=== PATIENT | male | born 1965 | race Caucasian/White ===

== ENCOUNTER 2023-01-04 09:27 | Emergency (ER) | payer OTHER, SELFPAY ==
[2023-01-04 09:30] VITALS: BP 157/91; PULSE 68; RESP 18; TEMP 36.7; O2SAT 98; BMI 32.9
--- NOTE | 2023-01-04 09:40 | XR_ITS ---
The [address] [address] Patient Name: YOSELYN WHITNEY MRN: [id number] date: 1965 Sex: M Assigned Patient Location: ER Current Patient Location: ER Accession/Order Number: [id number] Exam Date: 01/04/2023 09:50 Report Date: 01/04/2023 10:05 At the request of: SCARLET THEODORE Procedure: XR chest 1V EXAM: XR chest 1V HISTORY: . sob . COMPARISON: 03/23/2019 TECHNIQUE: Single view of the chest FINDINGS: Heart and vascularity are unremarkable. Lungs are free of focal infiltrates. Early spondylosis of the spine is noted. XR/XR chest 1V IMPRESSION: No acute heart or lung disease identified. Electronically authenticated by: LIU BAHENA Date: 01/04/2023 10:05
--- NOTE | 2023-01-04 09:40 | ECG_ITS ---
The [facility] Test Date: 2023-01-04 Pat Name: YOSELYN WHITNEY Department: Room: - Gender: Male Rand Sewer: : 1965 Requested By: [id number] Order Number: [id number] Reading MD: CHRISTAL BURGOS Measurements Intervals [place] Rate: 60 P: -2 AR: 162 QRS: -1 QRSD: 82 T: 12 QT: 384 QTc: 386 Interpretive Statements 1100 Sinus rhythm 9110 normal ECG No previous ECG available for comparison Electronically Signed On 01-05-2023 7:21:15 EDT by CHRISTAL BURGOS
[2023-01-04 10:00] LABS: Basophils Percent Auto 0.3 % (0.2-2.0); Eosinophils Absolute Auto 0.2 10^3/uL (0.0-0.7); Eosinophils Percent Auto 2.5 % (0.9-7.0); Hematocrit 48.2 % (42.0-54.0); Hemoglobin 16.6 g/dL (14.0-18.0); Immature Granulocytes Abs Auto 0.05 10^3/uL (0.00-0.03); Immature Granulocytes Pct Auto 0.5 % (0.0-0.5); Lymphocytes Absolute Auto 2.6 10^3/uL (1.2-3.8); Lymphocytes Percent Auto 26.8 % (20.5-60.0); Mean Corpuscular HGB Conc 34.4 g/dL (29.9-35.2); Mean Corpuscular Volume 90.1 fL (80.0-94.0); Mean Platelet Volume 8.9 fL (9.5-13.5); Monocytes Absolute Auto 0.7 10^3/uL (0.3-0.8); Monocytes Percent Auto 7.7 % (1.7-12.0); Neutrophils Percent Auto 62.2 % (43.0-75.0); Platelet Count 312 10^3/uL (150-450); Red Blood Count 5.35 10^6/uL (4.70-6.10); Red Cell Distribution Width 13.3 % (11.0-15.0); White Blood Count 9.6 10^3/uL (4.0-11.0)
[2023-01-04] MEDS: METHYLPREDNISOLONE SOD SUCC PF 125 MG/2 ML VIAL IVP (10:00)
[2023-01-04] MEDS: IPRATROPIUM/ALBUTEROL SULFATE 3 ML AMPUL.NEB IH (10:04)
[2023-01-04 10:05] VITALS: PULSE 58; RESP 16; O2SAT 99
[2023-01-04 10:11] LABS: Alanine Aminotransferase 29 U/L (16-63); Albumin Globulin Ratio 1.2; Albumin Level 4.1 g/dL (3.4-5.0); Alkaline Phosphatase 47 U/L (46-116); Anion Gap 14.8; Aspartate Amino Transferase 19 U/L (15-37); BUN Creatinine Ratio 18.9; Bilirubin Total 0.6 mg/dL (0.2-1.0); Calcium 9.2 mg/dL (8.5-10.1); Carbon Dioxide 24.1 mmol/L (21.0-32.0); Chloride 103 mmol/L (98-107); Estimated GFR (African America >60 (>=60); Estimated GFR (Non-African Ame >60 (>=60); Globulin 3.5 g/dL; Glucose 109 mg/dL (74-106); Potassium 3.9 mmol/L (3.5-5.1); Sodium 138 mmol/L (136-145); Total Protein 7.6 g/dL (6.4-8.2); Troponin I High Sensitivity 18.9 pg/mL (4.0-76.1)
[2023-01-04 10:28] LABS: INR 0.95; Prothrombin Time 10.1 sec (9.0-11.6)
--- NOTE | 2023-01-04 10:54 | ED.SOB1 ---
HPI - SOB/Dyspnea General Chief Complaint: Shortness of Breath/Dyspnea Stated Complaint: SHORTNESS OF BREATH/CHEST PAIN Time Seen by Provider: 01/04/23 09:39 Source: patient Mode of arrival: walk-in History of Present Illness HPI Narrative: The patient presented to us with shortness of breath as well as coughing and congestion with chest pain that comes whenever he take a deep breath in the middle of the chest, that has been going on at least for a week he mentioned that he already been evaluated by his primary care doctor and he was started on antibiotic and Z-Moises The patient have a history of smoking less than 1 pack/day of cigarettes He have no fever or chills and he mentioned that 7 days ago it all started with congestion and runny nose Related Data Home Medications Medication Instructions Recorded Confirmed azithromycin 250 mg tablet 250 mg PO DAILY 01/04/23 01/04/23 benzonatate 200 mg capsule 200 mg PO TID 01/04/23 01/04/23 esomeprazole magnesium 40 mg 40 mg PO Q24H 01/04/23 01/04/23 capsule,delayed release gabapentin 300 mg capsule 300 mg PO Q12H 01/04/23 01/04/23 Previous Rx's Medication Instructions Recorded albuterol sulfate 90 mcg/actuation 2 inh inhalation Q6H PRN shortness 01/04/23 aerosol inhaler of breath or wheezing #6.7 grams guaifenesin 600 mg tablet, 600 mg PO BID PRN cough #10 tabs 01/04/23 extended release 12 hr (Mucinex) prednisone 50 mg tablet 50 mg PO DAILY 5 days #5 tabs 01/04/23 Allergies Allergy/AdvReac Type Severity Reaction Status Date / Time No Known Drug Allergies Allergy Verified 01/04/23 09:34 Review of Systems ROS Status of ROS 10 or more systems reviewed and unremarkable except as noted in history and below Exam Narrative Exam Narrative: Nurses notes and vital signs reviewed and patient is not hypoxic. General: Well-appearing and in no apparent distress. Skin: Warm, dry, no pallor noted. No rash. Head: Normocephalic, atraumatic. Neck: Supple, non-tender. Eye: Pupils are equal, round and EOMI. No scleral icterus. Ears, Nose, Mouth, and Throat: TM are clear, no nasal mucosal hypertrophy. Oral mucosa is moist, no posterior oropharynx erythema, uvula is mid-line Cardiovascular: Regular Rate and Rhythm without murmur, gallop or rub. Respiratory: No accessory muscle use or respiratory distress. Lungs decreased air entry at the bases and distant breathing sounds no wheezing Chest Wall: no tenderness Back: No midline thoracic or lumbar vertebral tenderness. No CVA tenderness Musculoskeletal: normal ROM, no calf or popliteal tenderness, no lower extremity edema/swelling GI: Abdomen is soft, non-distended. Normal bowel sounds. No masses appreciated. No tenderness to palpation. No rebound, guarding, or rigidity noted. Neurological: A&O x4. No cranial nerve dysfunction observed. No truncal ataxia. Moves all extremities. Sensation intact. Psychiatric: Cooperative and interactive. Normal mood and affect. Constitutional Vital Signs, click to edit/add: Last Vital Signs Temp 98.0 F 01/04/23 09:30 Pulse 58 L 01/04/23 10:05 Resp 16 01/04/23 10:05 BP 157/91 H 01/04/23 09:30 Pulse Ox 99 01/04/23 10:05 O2 Del Method Room Air 01/04/23 10:05 Course Vital Signs Vital signs: Vital Signs Temperature 98.0 F 01/04/23 09:30 Pulse Rate 68 01/04/23 09:30 Respiratory Rate 18 01/04/23 09:30 Blood Pressure 157/91 H 01/04/23 09:30 Pulse Oximetry 98 01/04/23 09:30 Oxygen Delivery Method Room Air 01/04/23 09:30 Temperature 98.0 F 01/04/23 09:30 Pulse Rate 58 L 01/04/23 10:05 Respiratory Rate 16 01/04/23 10:05 Blood Pressure 157/91 H 01/04/23 09:30 Pulse Oximetry 99 01/04/23 10:05 Oxygen Delivery Method Room Air 01/04/23 10:05 MDM - SOB/Dyspnea MDM Narrative Medical decision making narrative: The patient EKG in the ER showing sinus rhythm with a heart rate of [address] elevation or depression The patient CBC chemistry as well as troponin and chest x-ray showed no acute pathology he is presenting with a typical bronchitis mostly secondary to viral infection he was treated with a Solu-Medrol and breathing treatment in the ER after which she was feeling better The patient is feeling much better after initial treatment he will be discharged home with prednisone as well as Mucinex and albuterol The patient is to follow up with primary care physician in next 2-3 days or to return to the emergency department should any of the signs or symptoms worsen or new symptoms develop. The patient agrees with the following Diagnosis and Treatment plan and the patient will be discharged home. Lab Data Labs: Lab Results 01/04/23 Range/Units 09:44 WBC 9.6 (4.0-11.0) 10^3/uL RBC 5.35 (4.70-6.10) 10^6/uL Hgb 16.6 (14.0-18.0) g/dL Hct 48.2 (42.0-54.0) % MCV 90.1 (80.0-94.0) fL MCH 31.0 (25.9-34.0) pg MCHC 34.4 (29.9-35.2) g/dL RDW 13.3 (11.0-15.0) % Plt Count 312 (150-450) 10^3/uL MPV 8.9 L (9.5-13.5) fL Neut % (Auto) 62.2 (43.0-75.0) % Lymph % (Auto) 26.8 (20.5-60.0) % [place] % (Auto) 7.7 (1.7-12.0) % Eos % (Auto) 2.5 (0.9-7.0) % Baso % (Auto) 0.3 (0.2-2.0) % Neut # (Auto) 6.0 (1.4-6.5) 10^3/uL Lymph # (Auto) 2.6 (1.2-3.8) 10^3/uL [place] # (Auto) 0.7 (0.3-0.8) 10^3/uL Eos # (Auto) 0.2 (0.0-0.7) 10^3/uL Baso # (Auto) 0.0 (0.0-0.1) 10^3/uL Abs Immat Gran (auto) 0.05 H (0.00-0.03) 10^3/uL Imm/Tot Granulo (auto) 0.5 (0.0-0.5) % PT 10.1 (9.0-11.6) sec INR 0.95 Sodium 138 (136-145) mmol/L Potassium 3.9 (3.5-5.1) mmol/L Chloride 103 (98-107) mmol/L Carbon Dioxide 24.1 (21.0-32.0) mmol/L Anion Gap 14.8 BUN 18.0 (7.0-18.0) mg/dL Creatinine 0.95 (0.70-1.30) mg/dL Est GFR ( Amer) >60 (>=60) Est GFR (Non-Af Amer) >60 (>=60) BUN/Creatinine Ratio 18.9 Glucose 109 H (74-106) mg/dL Calcium 9.2 (8.5-10.1) mg/dL Total Bilirubin 0.6 (0.2-1.0) mg/dL AST 19 (15-37) U/L ALT 29 (16-63) U/L Alkaline Phosphatase 47 (46-116) U/L Troponin I High Sens 18.9 (4.0-76.1) pg/mL Total Protein 7.6 (6.4-8.2) g/dL Albumin 4.1 (3.4-5.0) g/dL Globulin 3.5 g/dL Albumin/Globulin Ratio 1.2 Discharge Plan Discharge Chief Complaint: Shortness of Breath/Dyspnea Clinical Impression: Bronchitis Patient Disposition: Home, Self-Care Time of Disposition Decision: 10:52 Condition: Good Prescriptions / Home Meds: New prednisone 50 mg tablet 50 mg PO DAILY 5 Days Qty: 5 0RF guaifenesin [Mucinex] 600 mg tablet extended release 12hr 600 mg PO BID PRN (Reason: cough) Qty: 10 0RF albuterol sulfate 90 mcg/actuation HFA aerosol inhaler 2 inh inhalation Q6H PRN (Reason: shortness of breath or wheezing) Qty: 6.7 0RF No Action azithromycin 250 mg tablet 250 mg PO DAILY benzonatate 200 mg capsule 200 mg PO TID esomeprazole magnesium 40 mg capsule,delayed release(DR/EC) 40 mg PO Q24H gabapentin 300 mg capsule 300 mg PO Q12H Instructions: Acute Bronchitis (ED) Stand Alone Forms: Portal Instructions Referrals: Physician,Non-Staff, MD [Primary Care Provider] - 1 week
--- NOTE | 2023-01-09 12:39 | PC.NURSE ---
Pt. returns to ER this morning asking for a work note from 01/04 until 01/11 (when he can see his PCP). Work note was provided for 2 days only. Told patient that he can be re-evaluated in ER or PCP can decide to write him off for work longer.
== END 2023-01-04 11:03 | disposition home or self-care (01) ==
PROVIDERS: Emergency Provider Emergency Medicine
DX: J40 Bronchitis, not specified as acute or chronic (principal); R06.02 Shortness of breath; R07.9 Chest pain, unspecified; F17.210 Nicotine dependence, cigarettes, uncomplicated
CPT/HCPCS: 36415; 71045; 80053; 84484; 85025; 85610; 93005; 94640; 96374; 99285; J2930

== ENCOUNTER 2025-01-07 13:46 | Outpatient (OUT) | payer BC, SELFPAY ==
--- NOTE | 2025-01-07 14:30 | PM.CN ---
Consult Note: HPI Data of Consult Patient: new to practice Requesting Physician: Meron Acosta NP Primary Care Provider: Non-Staff Physician, MD Consult Narrative Reason for consult: neck and low back pain Narrative: Daniel Hudson a pleasant 59 year old male presents for evaluation of neck and low back pain. notes pain >5 years in neck and low back, was recently evaluated by GREGORIA Wright for low back pain who did not recommend surgical intervention, but to trial pain management. lumbar xray and MRI consistent with DDD and lumbar spondylosis. pt underwent cervical ESIs and RFAs in the past with significant improvement. pain today 10/10 sharp aching increasing with twisting, pushing, pulling, standing, bending, stairs, activity. denies fall/injury. utilizing tylenol, motrin, biofreeze, gabapentin, lexapro with minimal relief. cc:: CC: Meron Acosta NP Review of Systems ROS Musculoskeletal Reports: back pain and neck pain Meds Home Medications and Allergies Home Medications ?Medication ?Instructions ?Recorded ?Confirmed ?Type esomeprazole magnesium 40 mg 40 mg PO Q24H 01/04/23 01/04/23 History capsule,delayed release gabapentin 300 mg capsule 600 mg PO Q12H 01/04/23 01/07/25 History aspirin 81 mg tablet,delayed 81 mg PO DAILY 01/07/25 01/07/25 History release (Razia Low Dose Aspirin) escitalopram oxalate 20 mg tablet 20 mg PO DAILY 01/07/25 01/07/25 History ibuprofen 200 mg capsule 800 mg PO BID PRN pain 01/07/25 01/07/25 History metoprolol tartrate 25 mg tablet 25 mg PO BID 01/07/25 01/07/25 History rosuvastatin 20 mg tablet 20 mg PO DAILY 01/07/25 01/07/25 History tizanidine 4 mg capsule 4 mg PO QDAY PRN muscle spasticity 01/07/25 01/07/25 History Allergies Allergy/AdvReac Type Severity Reaction Status Date / Time No Known Drug Allergies Allergy Verified 01/04/23 09:34 Exam Constitutional Documenting provider has reviewed patient's vital signs: yes Common normals: no apparent distress, oriented x3, healthy appearing, alert and well nourished General appearance: cooperative HENMT Common normals: normocephalic, hearing grossly normal bilaterally and moist oral mucous membranes Head and scalp: normocephalic Eye Common normals: PERRL Pupil: PERRL Neck & C-Spine Common normals: full ROM General: normal visual inspection Cervical spine: pain with cervical ROM Chest Common normals: inspection of chest normal Respiratory Common normals: normal respiratory effort, no retractions and no use of accessory muscles Back & Pelvis Lumbar spine/lower back: ROM limited, pain with ROM, lumbar spinal tenderness and straight leg raise negative bilaterally Other: positive facet loading sensation intact BLE strength 5/5 in BLE Neuro Common normals: oriented x3 Sensorium/orientation: alert Psych Common normals: mental status grossly normal, thought process normal, cooperative, affect normal, speech normal and activity/motor behavior normal Speech: normal speech Thought process: normal thought process Results Additional Findings Additional findings: If on a controlled substance or opioids, I have checked an [place] report on this patient and there are no aberrancies noted in the prescribing history.??If on a controlled substance or opioid a drug screen was completed and reviewed within the last year, and if there has not been a drug screen completed we ordered one today to monitor higher risk, state monitored pain medication use. As part of providing excellent, safe, comprehensive care, the following was completed at our patient's visit: 1. A medication reconciliation and review to ensure accurate knowledge of current/active medications, including asking our patients to inform us about any [id number] medications or herbal remedies/nutritional supplements/alternative remedies. 2. A review to specifically ensure our patients have had annual screening for screening for depression, screening for tobacco use, and screening for unhealthy alcohol use. For concerning screenings had a discussion with the patient, provided patient education, and recommended follow-up with primary care provider when appropriate. If patient noted with a risk of falling, they received education on strength, gait, and balance training to prevent future risk of falling. Portions of this note may have been carried over from the previous visit and updated as appropriate. Please note this office utilizes paper charting in addition to the electronic medical record. A list of current medications, vitals, and PMH is available there as the clinical staff outside of myself do not have access to [facility] charting during the clinic day operations. As part of providing quality comprehensive care the current medications, vitals, and PMH were reviewed in the paper chart. Assessment and Plan Assessment and Plan (1) Lumbar spondylosis: Assessment and Plan: The patient has had over 3 months of moderate to severe low back pain with functional impairment and inadequate response to conservative care including NSAIDS (unless there are contraindication such as concurrent blood thinners), multiple oral or topical pain medications, and home exercise program/physical therapy.? Patient has completed >6 weeks of guided home exercise program and/or formal physical therapy program without relief of their symptoms.? The Oswestry Disability Index was completed, and the patient scored a 56%.? The patient noted the following:?? moderate to severe pain impacting ADLs, sitting, standing, sleeping, social life, travel (2) Cervical spondylosis: Plan update cervical xray to assess chronic pain proceed with bilateral L4-5 L5-S1 mbb x2 in consideration of RFA for axial facet mediated low back pain continue current medications f/u after each injection
== END 2025-01-07 13:47 | disposition home or self-care (01) ==
LOC: PM 13:46
PROVIDERS: Visit Provider Nurse Practitioner
DX: M47.816 Spondylosis without myelopathy or radiculopathy, lumbar region (principal); M47.812 Spondylosis without myelopathy or radiculopathy, cervical region
CPT/HCPCS: G0463

== ENCOUNTER 2025-01-19 11:21 | Day surgery (SDC) | payer BC, SELFPAY ==
--- OUTSIDE RECORDS SUMMARY | 2025-01-19 11:29 | XMS_ITS | Clinical Summary ---
Author Organization [facility] Address [address] [place] [address] Care Team Providers Care Network Engineering Advisor Name Role Phone Ricky Moulton MD Unavailable [phone] Jay Shen MD Unavailable [phone] Lorraine Orantes APRN.INSTRUCTIONAL TECHNOLOGIST Unavailable Wagner Hernandez MD Unavailable [phone] Allergies No known active allergies Medications amLODIPine (NORVASC) 5 mg tablet Take 5 mg by mouth once daily. Active gabapentin (NEURONTIN) 300 mg capsule Take 300 mg by mouth three times a day. Active metoprolol tartrate, short acting, (LOPRESSOR) 25 mg tablet Take 25 mg by mouth two times a day. Active aspirin, enteric coated (ASPIRIN, ENTERIC COATED) 81 mg EC tablet Take 81 mg by mouth once daily. Active esomeprazole (NEXIUM) 40 mg capsule Take 40 mg by mouth daily at 6 am. Active acetaminophen (TYLENOL EXTRA STRENGTH) 500 mg tablet Take 1-2 tablets by mouth every 6 hours as needed for pain. Do not exceed 4000mg in 24 hours 30 tablet 4 Active atorvastatin (LIPITOR) 20 mg tablet Take 1 tablet by mouth daily at bedtime. 30 tablet 1 4 Active lidocaine (SALONPAS) 4 % patch Apply 1 application as directed once daily. Apply 1 patch along side of sternal incision for 12 hours daily as needed for pain. Remove daily for 12 hours 4 Active polyethylene glycol 3350 17 gram packet Take 1 Packet by mouth once daily. Dissolve dose in 4 - 8 ounces of liquid and take as directed. To prevent constipation during post op recovery, then stop 7 Packet 1 4 Active senna-docusate (SENNA-S) 8.6-50 mg per tablet Take 1 tablet by mouth two times a day. To prevent constipation during post op recovery, then stop 28 tablet 1 4 Active Active Problems Patient Care Coordination No te Formatting of this note migh t be different from the original. Indication for Surgery: Complex Vessel Coronary Artery Disease Admit 05/10/23 Preop LVEF: 64% RVF: Normal EKG: SB 54 Cards: Shaniquacristi Hernandez Postop LVEF: Normal RVF: Normal PMH/PSH: CAD, NSTEMI s/p PCI PROMISE to OM (2.75 x 23 mm Liliana) in 2019, HTN, HLD, obesity, and smoking - just quit 05/06/2023 Preoperative Hospital Course: 57 yo male with CAD who presents for triple vessel coronary disease. Symptomaticwith progressive dyspnea and chest pain worsen especially over the past 6 months. 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 Airway Difficulty: Grade I - [place] Pacing Wires: No Surgeries: 05/10/2023: CABGx5 (BARNARD to LAD, MAULIK to PDA, rSVG to OM/D2 (sequenced), rSVG to D1 A/P of Major Active Problems: Transferred to [facility] 05/12 -CAD: s/p CABG x 5. (H/o NSTEMI s/p PCI in 2019) Daily ASA, BB, statin -HTN: (Preop on on norvasc 5mg, metoprolol 25mg bid). On metoprolol and norvasc 5mg daily. SBP is controlled. -HLD: continue lipitor, follow LFTs -CXR: 05/14 atelectasis, trace pleural effusions. Encourage C&DB, PEP, ambulation. Wt is below preop, observe off of lasix. -Pneumothorax: CXR 05/15 after right chest tube removal reported small right apical pneumothorax with an apical pleural separation of approximately 25 mm. Pt was placed on O2 overnight per CTS to improve the pneumothorax, otherwise he was stable on room air. Repeat CXR 05/16 was reviewed by CTS Dr. Vargas as stable w/ slight decrease in size of pneumothorax. He denies SOB and is stable on room air. Ok for discharge today w/ outpatient follow up next week with repeat CXR -ROGELIO - pt reported to anesthesia in [place]. Does not use CPAP -Current smoker - just quit 05/06/2023. 20pk years. Smoking cessation education and f/u with PCP. Consider nicoderm patches. On room air w/ O2 sats mid to upper 90s. -Postop pain: controlled on prn tylenol, prn oxy, lido patches. -Right foot numbness: Right foot with numbness and tingling. Has full ROM and strength. Biphasic DP and palpable PT. Mid ankle up with full sensation per patient. right SVG was harvested and coban was removed this morning. By next day, pt stated it was feeling better. -On nexium 40 mg at home. Increased routine postop PPI to 40 mg. Resume nexium on discharge -Stress hyperglycemia - No recent coverage, stopped SSI and accuchecks -Obesity - Body mass index is 32.28 kg/m . Encourage and educate on lifestyle changes for Wt Loss during hospital stay. F/u with PCP. Discharge: [place]. Will f/u CTS OPD (requested), f/u w/ PCP 1-2 weeks (Dr. Person) and [facility] (Dr. Shen) in [address] Vargas, ok for discharge today. Discharge Planning: Anticipated Discharge Date: 05/16 Barriers to Discharge: No Barriers to Discharge Care Management Discharge Needs: Needs Prior to Discharge: None Problem Noted Date Diagnosed Date Encounter for support and co ordination of transition of care 05/14/2023 Overview (05/16/2023): Indication for Surgery: Complex Vessel Coronary Artery Disease Admit 05/10/23 Preop LVEF: 64% RVF: Normal EKG: SB 54 Cards: Wagner Hernandez Postop LVEF: Normal RVF: Normal PMH/PSH: CAD, NSTEMI s/p PCI PROMISE to OM (2.75 x 23 mm Liliana) in 2019, HTN, HLD, obesity, and smoking - just quit 05/06/2023 Preoperative Hospital Course: 57 yo male with CAD who presents for triple vessel coronary disease. Symptomaticwith progressive dyspnea and chest pain worsen especially over the past 6 months. 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 Airway Difficulty: Grade I - [place] Pacing Wires: No Surgeries: 05/10/2023: CABGx5 (BARNARD to LAD, MAULIK to PDA, rSVG to OM/D2 (sequenced), rSVG to D1 A/P of Major Active Problems: Transferred to [facility] 05/12 -CAD: s/p CABG x 5. (H/o NSTEMI s/p PCI in 2019) Daily ASA, BB, statin -HTN: (Preop on on norvasc 5mg, metoprolol 25mg bid). On metoprolol and norvasc 5mg daily. SBP is controlled. -HLD: continue lipitor, follow LFTs -CXR: 05/14 atelectasis, trace pleural effusions. Encourage C&DB, PEP, ambulation. Wt is below preop, observe off of lasix. -Pneumothorax: CXR 05/15 after right chest tube removal reported small right apical pneumothorax with an apical pleural separation of approximately 25 mm. Pt was placed on O2 overnight per CTS to improve the pneumothorax, otherwise he was stable on room air. Repeat CXR 05/16 was reviewed by CTS Dr. Vargas as stable w/ slight decrease in size of pneumothorax. He denies SOB and is stable on room air. Ok for discharge today w/ outpatient follow up next week with repeat CXR -ROGELIO - pt reported to anesthesia in [place]. Does not use CPAP -Current smoker - just quit 05/06/2023. 20pk years. Smoking cessation education and f/u with PCP. Consider nicoderm patches. On room air w/ O2 sats mid to upper 90s. -Postop pain: controlled on prn tylenol, prn oxy, lido patches. -Right foot numbness: Right foot with numbness and tingling. Has full ROM and strength. Biphasic DP and palpable PT. Mid ankle up with full sensation per patient. right SVG was harvested and coban was removed this morning. By next day, pt stated it was feeling better. -On nexium 40 mg at home. Increased routine postop PPI to 40 mg. Resume nexium on discharge -Stress hyperglycemia - No recent coverage, stopped SSI and accuchecks -Obesity - Body mass index is 32.28 kg/m . Encourage and educate on lifestyle changes for Wt Loss during hospital stay. F/u with PCP. Discharge: [place]. Will f/u CTS OPD (requested), f/u w/ PCP 1-2 weeks (Dr. Person) and [facility] (Dr. Shen) in 1 month. Per CTS atif [place] for discharge today. Discharge Planning: Anticipated Discharge Date: 05/16 Barriers to Discharge: No Barriers to Discharge Care Management Discharge Needs: Needs Prior to Discharge: None Obesity, Class I, BMI 30-34.9 05/13/2023 Overview (05/14/2023): Body mass index is 33.15 kg/m . Atelectasis 05/11/2023 Overview (05/14/2023): CAD (coronary artery disease) 05/10/2023 Overview (05/10/2023): Hx of NSTEMI s/p PCI in 2019 Per OSH coronary angio: LAD 80-90% stenosis, LCx 50% proximal and 78% distal stenosis, RCA 80-90% proximal stenosis. HTN (hypertension) 05/10/2023 Overview (05/14/2023): Home meds amlodipine and metoprolol HLD (hyperlipidemia) 05/10/2023 Overview (05/14/2023): See coord note. Obesity 05/10/2023 Smoker 05/10/2023 Overview (05/14/2023): Quit 05/06/2023 On mechanically assisted ventilation 05/10/2023 Postoperative pain 05/10/2023 Overview (05/14/2023): Stress hyperglycemia 05/10/2023 Hypovolemia 05/10/2023 Sinus tachycardia 05/10/2023 Discharge planning issues 05/09/2023 Overview (05/14/2023): Patient is here for cardiac surgery . Pre-op testing 05/09/2023 Overview (05/09/2023): [facility] PRE-OP CHECKLIST Informed Consent Completed: No CAD: Yes - CAD on Problem List: Yes Is intended procedure a CABG: Yes - is a beta esteban ordered? No - reason: home med H & P completed: yes PA/LAT: Completed CT: Completed MRI: N/A LE US: N/A Cath: Yes - reviewed: Yes EKG: Completed Is patient on Amiodarone? No Echo:Completed EF %: 64 PI's: left 100 right 100 Carotid: Completed Mapping: Completed Dental: Not Cleared na PFT's: Completed Recent Labs 05/08/23 0823 WBC 8.83 HB 16.9 HCT 48.9 PLT 308 INR 1.0 CREAT 1.10 UA: Normal HCG:N/A ABO/ABO Confirmed: Yes Blood ordered: No SA Swab: Yes - results: Pending Last Dose of Anticoagulation: asa 81 continued Anticoagulant & Antiplatelet Medications Patient Encounter Information Not Found Op Note: No Pacer Check: NA Implants: no Consults: na DM: Yes Cardiac Surgical prep: No SIGNATURE: Natalie Forte RN DATE of SERVICE: 05/09/2023 TIME of SERVICE: 8:26 AM CHECKED BY: AVI Social History Tobacco Use Types Packs/Day Years Used Date Smoking Tobacco: Former Cigarettes Q uit: 05/06/2023 Smokeless Tobacco: Never Tobacco Cessation:Counseling Given: Not Answered Alcohol Use Standard Drinks/Week Comments Never 0 (1 standard drink = 0.6 oz pur e alcohol) Area Deprivation Index Answer Date Jai rded National Score (1-100), lower number is lower ri sk 65 05/08/2023 State Score (1-10), lower number is lower risk 4 05/08/2023 Data from: https://www.neighborhoodatlas.medicine.[facility].edu/. Last address used for calculation [address] 05/08/2023 Sex and Gender Information Value Date Recorded Sex Assigned at Not on file Legal Sex Male 9:33 AM EST Gender Identity Not on file Sexual Orientation Not on file Last Filed Vital Signs Vital Sign Reading Time Taken Comments Blood Pressure 121/75 05/22/2023 11:32 AM EST Pulse 81 05/22/2023 11:32 AM EST Temperature 36.4 C (97.6 F) 05/22/2023 11:32 AM EST Respiratory Rate 20 05/22/2023 11:32 AM EST Oxygen Saturation 97% 05/22/2023 11:32 AM EST Inhaled Oxygen Concentration - - Weight 93.4 kg (206 lb) 05/22/2023 11:32 AM EST Height 170.2 cm (5' 7 ) 05/22/2023 11:32 AM EST Body Mass Index 32.26 05/22/2023 11:32 AM EST Plan of Treatment Health Maintenance Due Date Last Done Comments Annual PCP Team Chronic Dise ase Visit 1981 Anxiety Screening 1981 Depression Screening 1981 HIV Screening 1981 Hepatitis C Screening 1981 LDL Cholesterol 1981 DTaP,Tdap,Td Vaccine (1 - Tdap) [address] Colonography 2008 Cologuard (FIT-DNA) 2008 Colonoscopy 2008 Colorectal Cancer Screening 2008 Fecal Occult Blood 2008 Prostate Cancer Screening Discussion 2008 Sigmoidoscopy 2008 Pneumococcal Vaccine: 50+ (1 of 1 - PCV) 2013 Shingrix Vaccine (1 of 2) 2013 Influenza Vaccine (#1) 2025 2, 02/11/2020, 03/24/2019, Additional history exists Diabetes Screening 05/16/2026 05/16/2023, 0 05/15/2023, 05/14/2023, Additional history exists RSV Vaccine (1 - 1-dose 75+ series) 2038 Medical Devices Implanted Type Area Preservationist Device Identifier Shelf Expiration Date Model / Serial / Lot Leon Thk1.65mm Ptfe 4x.5in Cardiovascular Sterile - [id number] Implanted:Qty: 1 on 05/10/2023 at [facility] Implant N/A: Heart BARD PERIPHERAL VASCULAR 02/02/2028 [id number] / / [id number] Stent X 2 Stent Artery - Coronary Procedures Procedure Name Priority Date/Time Associated Diagnosis Comments COMPREHENSIVE METABOLIC PANEL Routine 05/16/2023 7:20 AM EST from Last 3 Months or Most Recently Relevant to Health Maintenance Results * COMP METABOLIC PANEL (05/16/2023 7:20 AM EST) Protein, Total 7.1 6.3 - 8.0 g/dL 05/16/2023 10:38 AM EST [facility] Albumin 3.9 3.9 - 4.9 g/dL 05/16/2023 10:38 AM EST [facility] Calcium, Total 9.4 8.5 - 10.2 mg/dL 05/16/2023 10:38 AM EST [facility] Bilirubin, Total 0.7 0.2 - 1.3 mg/dL 05/16/2023 10:38 AM EST [facility] Alkaline Phosphatase 70 38 - 113 U/L 05/16/2023 10:38 AM EST [facility] AST 24 14 - 40 U/L 05/16/2023 10:38 AM EST [facility] ALT 19 10 - 54 U/L 05/16/2023 10:38 AM EST [facility] Glucose 97 74 - 99 mg/dL 05/16/2023 10:38 AM EST [facility] Comment: The [place] Diabetes Association (ADA) provides guidance for cutoff values for fasting glucose and random glucose. The ADA defines fasting as no caloric intake for at least 8 hours. Fasting plasma glucose results between 100 to 125 mg/dL indicate increased risk for diabetes (prediabetes). Fasting plasma glucose results greater than or equal to 126 mg/dL meet the criteria for diagnosis of diabetes. In the absence of unequivocal hyperglycemia, results should be confirmed by repeat testing. In a patient with classic symptoms of hyperglycemia or hyperglycemic crisis, random plasma glucose results greater than or equal to 200 mg/dL meet the criteria for diagnosis of diabetes. Reference: Standards of Medical Care in Diabetes 2016, [place] Diabetes Association. Diabetes Care. 2016.39(Suppl 1). BUN 14 9 - 24 mg/dL 05/16/2023 10:38 AM EST [facility] Creatinine 1.08 0.73 - 1.22 mg/dL 05/16/2023 10:38 AM EST [facility] Sodium 136 136 - 144 mmol/L 05/16/2023 10:38 AM [facility] Potassium 3.8 3.7 - 5.1 mmol/L 05/16/2023 10:38 AM [facility] Chloride 99 97 - 105 mmol/L 05/16/2023 10:38 AM [facility] CO2 22 22 - 30 mmol/L 05/16/2023 10:38 AM EST [facility] Anion Gap 15 9 - 18 mmol/L 05/16/2023 10:38 AM EST [facility] Estimated Glomerular Filtration Rate 79 >=60 mL/min/1.7 3m 05/16/2023 10:38 AM [facility] Comment:Estimated Glomerular Filtration Rate (eGFR) is calculated using the 2020 CKD-EPI creatinine equation. This equation utilizes serum creatinine, sex, and age as parameters. The creatinine assay has traceable calibration to isotope dilution- mass spectrometry. Refer to KDIGO guidelines for clinical interpretation. In patients with unstable renal function, e.g. those with acute kidney injury, the eGFR may not accurately reflect actual GFR. Blood BLOOD SPECIMEN / Unknown Venipuncture / Unknown 05/16/2023 7:20 AM EST 05/16/2023 7:56 AM EST us Ricky Moulton MD LABORATORY Final Result [facility] [address] [place] [address], from Last 3 Months or Most Recently Relevant to Health Maintenance Insurance [employer] Care Teams Network Engineering Advisor Relationship Specialty Start Date End Date Ricky Moulton MD [address] [place] [address] Surgeon Cardiac Surg 03/20/23 Jay Shen MD [address] [place] [address] Forestry Pilot Cardiology 03/20/23 Lorraine Orantes, THERAPY SITE COORDINATOR.INSTRUCTIONAL TECHNOLOGIST [address] [place] [address] 05/08/23 Wagner Hernandez MD [address] [place] [address] Primary Staff Physician Cardiology 05/09/23
--- OUTSIDE RECORDS SUMMARY | 2025-01-19 11:29 | XMS_ITS | Clinical Summary ---
Author Organization [facility] Address [address] [place] [address] Care Team Providers Care Plate And Frame Filter Operator Name Role Phone Lorraine Orantes MATERIAL RECLAIMER Unavailable Allergies No known active allergies Medications Aspirin Low Dose 81 MG EC tablet Take 81 mg by mouth in the morning. Active esomeprazole (NexIUM) [address] capsule Take 40 mg by mouth in the morning. Active tiZANidine (Zanaflex) 4 MG tablet TAKE 1- TWO TABLETS BY MOUTH DAILY AT BEDTIME 12/14/19 24 Active gabapentin (Neurontin) 300 MG capsule Take 300 mg by mouth in the morning and 300 mg in the evening and 300 mg before bedtime. 10/10/19 24 Active atorvastatin (Lipitor) 20 MG tablet Take 20 mg by mouth 05/16/19 24 Active metoprolol tartrate (Lopressor) 25 MG tablet Take 25 mg by mouth 09/14/19 24 Active methylPREDNISolon e (Medrol Dospak) 4 MG tabletsIndication s:Lateral epicondylitis of left elbow Follow schedule on package instructions 21 tablet 12/24/19 24 Active Family History Relation Name Status Comments Father Mother Social History Tobacco Use Types Packs/Day Years Used Date Smoking Tobacco: Every Day Cigarettes Tobacco Cessation:Ready to Q uit: Not Asked; Counseling Given: Not Answered Comments:6-10 cigarettes Alcohol Use Standard Drinks/Week Comments Not Currently 0 (1 standard drink = 0.6 oz pur e alcohol) Sex and Gender Information Value Date Recorded Sex Assigned at Not on file Legal Sex Male 8:24 PM EDT Gender Identity Not on file Sexual Orientation Not on file Last Filed Vital Signs Vital Sign Reading Time Taken Comments Blood Pressure - - Pulse - - Temperature - - Respiratory Rate - - Oxygen Saturation - - Inhaled Oxygen Concentration - - Weight 95.2 kg (209 lb 12.8 oz) 022 12:00 PM EST Height 170.2 cm (5' 7 ) 05/19/2021 12:0 0 PM EST Body Mass Index 32.86 05/19/2021 12:00 PM EST Plan of Treatment Health Maintenance Due Date Last Done Comments CT Colonography 1963 FIT-DNA 1963 FIT 1963 FOBT 1963 Sigmoidoscopy 1963 Influenza Vaccine (#1) 2025 2, 02/11/2020, 03/24/2019, Additional history exists Colonoscopy 03/22/2030 03/22/2020 Colorectal Cancer Screening 03/22/2030 Insurance [facility] Care Teams Plate And Frame Filter Operator Relationship Specialty Start Date End Date Lorraine Orantes NP [address] [place] [address] Referring Physician Family Medicine 12/17/23
--- OUTSIDE RECORDS SUMMARY | 2025-01-19 11:29 | XMS_ITS | Encounter Summary ---
Author Organization [facility] Address [address] [place] [address] Care Team Providers Care Airport Engineer Name Role Phone Lorraine Ornates STEAM SHOVEL RUNNER Unavailable Encounter Details Date Type Department Care Team (Late st Contact Info) Description 04/16/2023 Abstract [facility] [address] [place] [address] Pilar Patrick NP Social History Tobacco Use Types Packs/Day Years [...] on file Sexual Orientation Not on file documented as of this encounter Plan of Treatment Not on file documented as of this encounter Visit Diagnoses Not on filedocumented in this encounter Care Teams Airport Engineer Relationship Specialty Start Date End Date Lorraine Orantes NP [address] [place] [address] Referring Physician Family Medicine 12/17/23 documented as of this encounter
[2025-01-19 11:36] VITALS: BP 149/78; PULSE 56; TEMP 36.1; O2SAT 98
[2025-01-19 12:02] VITALS: BP 160/73; PULSE 61; O2SAT 97
[2025-01-19 12:03] VITALS: BP 160/77; PULSE 58; O2SAT 96
[2025-01-19] MEDS: BUPIVACAINE HCL 0.25% PF 25 MG/10 ML VIAL 8 ML INJ (12:03)
[2025-01-19] MEDS: LIDOCAINE HCL 2% 400 MG/20 ML MDV INJ (12:04)
--- NOTE | 2025-01-19 12:06 | W.PM.PROCNOT ---
Date of procedure: 01/19/25 Pre-op diagnosis: Pain due to lumbar spondylosis without myelopathy Post-op diagnosis: same as pre-op Procedure: Procedure: Bilateral L4-5, L5-S1 medial branch block Medications: Bupivacaine 0.25% 6cc The patient was seen and examined in the preoperative holding area.? An informed consent was obtained and placed on the chart.? The patient was brought to the medical procedure unit and placed in the prone position.? A timeout was completed verifying correct patient, procedure site, positioning, plan, and special equipment.? Using aseptic technique, the needle was placed at left L4. Under direct fluoroscopic visualization a Quincke-tipped spinal needle was advanced to the junction of the superior articulating process with the transverse process at the designated medial branch segment.? Preceded by negative aspiration, the above-mentioned injectate was placed in 1 mL aliquots.? The procedure was repeated at left L5, S1.? The needle was removed and insertion site was covered. The same procedure, at the same levels, was completed on the right side. The patient was taken to the postprocedural recovery area and monitored for an appropriate length of time before found suitable for discharge in the company of a responsible adult. Anesthesia: Local Surgeon: Yumiko Cazares Pathology: none sent Condition: stable Disposition: no change
== END 2025-01-19 12:11 | disposition home or self-care (01) ==
LOC: SURGOUT 11:26
PROVIDERS: Visit Provider Anesthesiology
DX: M47.816 Spondylosis without myelopathy or radiculopathy, lumbar region (principal); M54.50 Low back pain, unspecified
CPT/HCPCS: 64493; 64494; J0665

== ENCOUNTER 2025-01-22 09:26 | Outpatient (OUT) | payer BC, SELFPAY ==
--- NOTE | 2025-01-22 09:52 | PM.CN ---
Consult Note: HPI Data of Consult Patient: known to practice within the last 3 years Consult date: 01/22/25 Requesting Physician: Meron Acosta NP Primary Care Provider: Non-Staff Physician, MD Consult Narrative Reason for consult: low back pain Narrative: Daniel Hudson a pleasant 59 year old male presents for evaluation of low back pain. notes pain >5 years in neck and low back, was recently evaluated by GREGORIA Wright for low back pain who did not recommend surgical intervention, but to trial pain management. lumbar xray and MRI consistent with DDD and lumbar spondylosis. pain today 10/10 sharp aching increasing with twisting, pushing, pulling, standing, bending, stairs, activity. denies fall/injury. utilizing motrin, biofreeze, lexapro with minimal relief. stopped gabapentin as it was not effective per pt. since last visit he underwent bilateral L4-5 L5-S1 MBB #1 with significant improvement in pain and functional ability while anesthetized, preop pain 10/10 post op pain 1-2/10 for 6 hours. He was able to do yardwork, bending, twisting, lifting with significantly less pain. Notes severe pain today as a result of over activity. cc:: CC: Meron Acosta NP Review of Systems ROS Musculoskeletal Reports: back pain PFSH PFSH Medical History (Updated 01/20/25 @ 10:35 by Kathleen Vargas) Arthritis ?M19.90 - Unspecified osteoarthritis, unspecified site (ICD-10) Anxiety ?F41.9 - Anxiety disorder, unspecified (ICD-10) Acid reflux ?K21.9 - Gastro-esophageal reflux disease without esophagitis (ICD-10) Loud snoring ?R06.83 - Snoring (ICD-10) Sleep apnea ?G47.30 - Sleep apnea, unspecified (ICD-10) High cholesterol ?E78.00 - Pure hypercholesterolemia, unspecified (ICD-10) History of angina ?Z86.79 - Personal history of other diseases of the circulatory system (ICD-10) Heart attack ?I21.9 - Acute myocardial infarction, unspecified (ICD-10) Surgical History (Updated 01/20/25 @ 10:35 by Kathleen Vargas) H/O heart artery stent ?Z95.5 - Presence of coronary angioplasty implant and graft (ICD-10) H/O hand surgery ?Z98.890 - Other specified postprocedural states (ICD-10) H/O heart bypass surgery ?Z95.1 - Presence of aortocoronary bypass graft (ICD-10) Meds Home Medications and Allergies Home Medications ?Medication ?Instructions ?Recorded ?Confirmed ?Type esomeprazole magnesium 40 mg 40 mg PO Q24H 01/04/23 01/19/25 History capsule,delayed release gabapentin 300 mg capsule 600 mg PO Q12H 01/04/23 01/19/25 History aspirin 81 mg tablet,delayed 81 mg PO DAILY 01/07/25 01/19/25 History release (Razia Low Dose Aspirin) escitalopram oxalate 20 mg tablet 20 mg PO DAILY 01/07/25 01/19/25 History ibuprofen 200 mg capsule 800 mg PO BID PRN pain 01/07/25 01/19/25 History metoprolol tartrate 25 mg tablet 25 mg PO BID 01/07/25 01/19/25 History rosuvastatin 20 mg tablet 20 mg PO DAILY 01/07/25 01/19/25 History Allergies Allergy/AdvReac Type Severity Reaction Status Date / Time No Known Drug Allergies Allergy Verified 01/19/25 11:37 Exam Constitutional Documenting provider has reviewed patient's vital signs: yes Common normals: no apparent distress, oriented x3, healthy appearing, alert and well nourished General appearance: cooperative HENMT Common normals: normocephalic, hearing grossly normal bilaterally and moist oral mucous membranes Head and scalp: normocephalic Eye Common normals: PERRL Pupil: PERRL Neck & C-Spine Common normals: full ROM General: normal visual inspection Cervical spine: pain with cervical ROM Chest Common normals: inspection of chest normal Respiratory Common normals: normal respiratory effort, no retractions and no use of accessory muscles Back & Pelvis Lumbar spine/lower back: ROM limited, pain with ROM, lumbar spinal tenderness and straight leg raise negative bilaterally Other: positive facet loading sensation intact BLE strength 5/5 in BLE Neuro Common normals: oriented x3 Sensorium/orientation: alert Psych Common normals: mental status grossly normal, thought process normal, cooperative, affect normal, speech normal and activity/motor behavior normal Speech: normal speech Thought process: normal thought process Results Additional Findings Additional findings: If on a controlled substance or opioids, I have checked an OARRS report on this patient and there are no aberrancies noted in the prescribing history.??If on a controlled substance or opioid a drug screen was completed and reviewed within the last year, and if there has not been a drug screen completed we ordered one today to monitor higher risk, state monitored pain medication use. As part of providing excellent, safe, comprehensive care, the following was completed at our patient's visit: 1. A medication reconciliation and review to ensure accurate knowledge of current/active medications, including asking our patients to inform us about any rsoh-ddg-qeqdmjz medications or herbal remedies/nutritional supplements/alternative remedies. 2. A review to specifically ensure our patients have had annual screening for screening for depression, screening for tobacco use, and screening for unhealthy alcohol use. For concerning screenings had a discussion with the patient, provided patient education, and recommended follow-up with primary care provider when appropriate. If patient noted with a risk of falling, they received education on strength, gait, and balance training to prevent future risk of falling. Portions of this note may have been carried over from the previous visit and updated as appropriate. Please note this office utilizes paper charting in addition to the electronic medical record. A list of current medications, vitals, and PMH is available there as the clinical staff outside of myself do not have access to [employer] charting during the clinic day operations. As part of providing quality comprehensive care the current medications, vitals, and PMH were reviewed in the paper chart. Assessment and Plan Assessment and Plan (1) Lumbar spondylosis: Assessment and Plan: The patient has had over 3 months of moderate to severe low back pain with functional impairment and inadequate response to conservative care including NSAIDS (unless there are contraindication such as concurrent blood thinners), multiple oral or topical pain medications, and home exercise program/physical therapy.? Patient has completed >6 weeks of guided home exercise program and/or formal physical therapy program without relief of their symptoms.? The Oswestry Disability Index was completed, and the patient scored a %.? The patient noted the following:?? moderate to severe pain impacting ADLs, sitting, standing, sleeping, social life, travel Plan proceed with bilateral L4-5 L5-S1 mbb x2 in consideration of RFA for axial facet mediated low back pain dc otc nsiads, start mobic 7.5mg bid prn pain with food. risks vs benefits reviewed f/u after each injection
== END 2025-01-22 09:27 | disposition home or self-care (01) ==
LOC: PM 09:26
PROVIDERS: Visit Provider Nurse Practitioner
DX: M47.816 Spondylosis without myelopathy or radiculopathy, lumbar region (principal)
CPT/HCPCS: G0463

== ENCOUNTER 2025-02-16 12:37 | Day surgery (SDC) | payer BC, SELFPAY ==
--- OUTSIDE RECORDS SUMMARY | 2025-02-16 12:40 | XMS_ITS | Encounter Summary ---
Author Organization [facility] Address [address] [place] [address] Care Team Providers Care Manager Internet Retails Sales Name Role Phone Lorraine Orantes ELEMENTARY CLASSROOM TEACHER Unavailable Encounter Details Date Type Department Care Team (Late st Contact Info) Description 04/16/2023 Abstract [facility] [address] [place] [address] Pilar Patrick NP Social History Tobacco Use [...] on filedocumented in this encounter Care Teams Manager Internet Retails Sales Relationship Specialty Start Date End Date Lorraine Orantes NP [address] [place] [place] [address] Referring Physician Family Medicine 12/17/23 documented as of this encounter
--- OUTSIDE RECORDS SUMMARY | 2025-02-16 12:40 | XMS_ITS | Clinical Summary ---
Author Organization [facility] Address [address] [place] [address] Care Team Providers Care Methods Analyst Name Role Phone Ricky Moulton MD Unavailable [phone] Jay Shen MD Unavailable [phone] Lorraine Orantes APRN.AUTOCAD TECHNICIAN Unavailable Wagner Hernandez MD Unavailable Allergies No known active allergies Medications amLODIPine [...] the past 6 months. 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 Airway Difficulty: Grade I - Upton Pacing Wires: No Surgeries: 05/10/2023: CABGx5 (BARNARD to LAD, MAULIK to PDA, rSVG to OM/D2 (sequenced), rSVG to D1 A/P of Major Active Problems: Transferred to [facility] 05/12 -CAD: s/p CABG x 5. [...] during hospital stay. F/u with PCP. Discharge: [place]. Will f/u CTS OPD (requested), f/u w/ PCP 1-2 weeks (Dr. Person) and Senior Drupal Developer (Dr. Shen) in 1 month. Per CTS [...] the past 6 months. 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 Airway Difficulty: Grade I - Upton Pacing Wires: No Surgeries: 05/10/2023: CABGx5 (BARNARD to LAD, MAULIK to PDA, rSVG to OM/D2 (sequenced), rSVG to D1 A/P of Major Active Problems: Transferred to [facility] 05/12 -CAD: s/p CABG x 5. [...] w/ PCP 1-2 weeks (Dr. Person) and Senior Drupal Developer (Dr. Shen) in 1 month. Per CTS [...] is lower risk 4 05/08/2023 Data from: https://www.neighborhoodatlas.medicine.[facility].edu/. Last address used for calculation [address] 05/08/2023 Sex and Gender Information Value Date [...] 2013 Shingrix Vaccine (1 of 2) 2013 Covid-19 Vaccine (3 - 2024-2 6 season) 2025 04/18/2021, 10/03/2020 Influenza Vaccine (#1) 2025 2, 02/11/2020, 03/24/2019, Additional history exists Diabetes Screening 05/16/2026 05/16/2023, 0 05/15/2023, 05/14/2023, Additional history exists RSV Vaccine (1 - 1-dose 75+ series) 2038 Medical Devices Implanted Type Area Ceramic Tiler Device Identifier Shelf Expiration Date Model / Serial / Lot [place] Thk1.65mm Ptfe 4x.5in Cardiovascular Sterile - [id number] Implanted:Qty: 1 on 05/10/2023 at [facility] Implant N/A: Heart BARD PERIPHERAL VASCULAR 02/02/2028 [id number] / / [id number] Stent X 2 Stent Artery - Coronary Procedures Procedure Name Priority Date/Time Associated Diagnosis Comments COMPREHENSIVE METABOLIC PANEL Routine 05/16/2023 7:20 AM EST from Last 3 Months or Most Recently Relevant to Health Maintenance Results * COMP METABOLIC PANEL (05/16/2023 7:20 AM EST) Protein, Total 7.1 6.3 - 8.0 g/dL 05/16/2023 10:38 AM EST [facility] Albumin 3.9 3.9 - 4.9 g/dL 05/16/2023 10:38 AM EST [facility] Calcium, Total 9.4 8.5 - 10.2 mg/dL 05/16/2023 10:38 AM EST [facility] Bilirubin, Total 0.7 0.2 - 1.3 mg/dL 05/16/2023 10:38 AM EST [facility] Alkaline Phosphatase 70 38 - 113 U/L 05/16/2023 10:38 AM EST [facility] AST 24 14 - 40 U/L 05/16/2023 10:38 AM EST [facility] ALT 19 10 - 54 U/L 05/16/2023 10:38 AM EST [facility] Glucose 97 74 - 99 mg/dL 05/16/2023 10:38 AM [facility] Comment: The [place] Diabetes Association (ADA) provides guidance for cutoff [...] Standards of Medical Care in Diabetes 2016, [place] Diabetes Association. Diabetes Care. 2016.39(Suppl 1). BUN 14 9 - 24 mg/dL 05/16/2023 10:38 AM EST [facility] Creatinine 1.08 0.73 - 1.22 mg/dL 05/16/2023 10:38 AM EST [facility] Sodium 136 136 - 144 mmol/L 05/16/2023 10:38 AM EST [facility] Potassium 3.8 3.7 - 5.1 mmol/L 05/16/2023 10:38 AM EST [facility] Chloride 99 97 - 105 mmol/L 05/16/2023 10:38 AM EST [facility] CO2 22 22 - 30 mmol/L 05/16/2023 10:38 AM EST [facility] Anion Gap 15 9 - 18 mmol/L 05/16/2023 10:38 AM EST [facility] Estimated Glomerular Filtration Rate 79 >=60 mL/min/1.7 3m 05/16/2023 10:38 AM EST [facility] Comment:Estimated Glomerular Filtration Rate (eGFR) [...] 7:20 AM EST 05/16/2023 7:56 AM EST Ricky Moulton MD LABORATORY Final Result [facility] [address] [address], from Last 3 Months or Most Recently Relevant to Health Maintenance Insurance [facility] MEDICAID MARKETPLACE EXCHANGE Care Teams Methods Analyst Relationship Specialty Start Date End Date Ricky Moulton MD [address] [place] [address] Surgeon Cardiac Surg 03/20/23 Jay Shen MD [address] [place] [address] Senior Drupal Developer Cardiology 03/20/23 Lorraine Orantes, LENS POLISHER HAND.AUTOCAD TECHNICIAN [address] [place] [address] 05/08/23 Wagner Hernandez MD [address] [place] [address] Primary Staff Physician Cardiology 05/09/23
--- OUTSIDE RECORDS SUMMARY | 2025-02-16 12:40 | XMS_ITS | Clinical Summary ---
Author Organization [facility] Address [address] [place] [address] Care Team Providers Care Video Games Mechanic Name Role Phone Lorraine Orantes SWINGING CUT OFF SAW OPERATOR Unavailable Allergies No known active allergies Medications [...] 05/19/2021 12:00 PM EST Plan of Treatment Not on file Insurance [facility] Care Teams Video Games Mechanic Relationship Specialty Start Date End Date Lorraine Orantes NP [address] [place] [address] Referring Physician Family Medicine 12/17/23
--- OUTSIDE RECORDS SUMMARY | 2025-02-16 12:40 | XMS_ITS | Patient Health Record ---
Author Organization [facility] [place] Address [address] [place] [address] Care Team Providers Care Airplane Tester Name Role Phone Tricia Gonzalez CNP Primary Care Provider Unavail able Reason For Referral No Information Medications Medication SIG (Take, Route, Frequency, Duration) Notes Start Date End Date Status oxyCODONE-Acetaminophen 5-325 MG 1 tablet as needed Orally every 6 hrs Active traMADol HCl 50 MG 1 tablet as needed O rally every 6 hrs Active Social History Tobacco Use: Social History Observation Description Date Details (start date - stop date) Current Smoker NA - NA Tobacco Use/Smoking Question Answer Notes Patient is a current smoker How often do you smoke cigarettes? every day How many cigarettes a day do you smoke? 11-20 Plan Of Treatment Pending Test Test Name Order Date MRI Cervical Spine w/o contrast * 2017 Insurance Providers Payer Name Payer Address Payer Phone Subscriber Number Group Number Insured Name Patient Relationship to Insured Coverage Start Date Coverage End Date ANTHEM ACCESS PPO PLUS LOCAL PLAN [address] [place] [address] [id number] Daniel Hudson Self - patient is the insured 8 Medical (General) History Medical History History ICD Code Migraines Surgical History Surgery Date(Month/Year) right hand fracture/pins & plate
[2025-02-16 12:43] VITALS: BP 141/82; PULSE 64; TEMP 36.7; O2SAT 97
[2025-02-16 12:54] VITALS: BP 145/76; BP 154/72; PULSE 77; PULSE 79; O2SAT 96
[2025-02-16] MEDS: LIDOCAINE HCL 2% 400 MG/20 ML MDV INJ (12:56)
[2025-02-16] MEDS: BUPIVACAINE HCL 0.25% PF 25 MG/10 ML VIAL 8 ML INJ (12:56)
--- NOTE | 2025-02-16 13:00 | W.PM.PROCNOT ---
Date of procedure: 02/16/25 Pre-op diagnosis: Pain due to lumbar spondylosis without myelopathy Post-op diagnosis: same as pre-op Procedure: Procedure: Bilateral L4-5, L5-S1 medial branch block Medications: Bupivacaine 0.25% 6cc The patient was seen and examined in the preoperative holding area.? An informed consent was obtained and placed on the chart.? The patient was brought to the medical procedure unit and placed in the prone position.? A timeout was completed verifying correct patient, procedure site, positioning, plan, and special equipment.? Using aseptic technique, the needle was placed at left L4. Under direct fluoroscopic visualization a Quincke-tipped spinal needle was advanced to the junction of the superior articulating process with the transverse process at the designated medial branch segment.? Preceded by negative aspiration, the above-mentioned injectate was placed in 1 mL aliquots.? The procedure was repeated at left L5, S1.? The needle was removed and insertion site was covered. The same procedure, at the same levels, was completed on the right side. The patient was taken to the postprocedural recovery area and monitored for an appropriate length of time before found suitable for discharge in the company of a responsible adult. Anesthesia: Local Surgeon: Yumiko Cazares Pathology: none sent Condition: stable Disposition: no change
== END 2025-02-16 13:02 | disposition home or self-care (01) ==
PROVIDERS: Visit Provider Anesthesiology
DX: M47.816 Spondylosis without myelopathy or radiculopathy, lumbar region (principal); M54.50 Low back pain, unspecified
CPT/HCPCS: 64493; 64494; J0665

== ENCOUNTER 2025-02-18 13:44 | Outpatient (OUT) | payer BC, SELFPAY ==
--- OUTSIDE RECORDS SUMMARY | 2020-01-01 11:30 | XMS_ITS | Continuity of Care Document ---
Author Organization [facility] Address [address] [place] [address] Phone Care Team Providers Care Hunting Guide Name Role Phone Aracelirobyn SHERMANElsa Unavailable Unavailabl [...] Diagnoses Date Provider Providers Copied on Encounter [facility], [address] [place] [address], [id number], [place] tel:[phone] Dental Clinic DL (chief complaint) Encounter for screening for dental disorders Kerline ARAGONChiara Hunter. [address] [place] [address], [id number], [place]. tel:[phone] Family History Family Member Type Diagnosis Age At Onset Father Problem Heart Attack Payers Payer name Insurance type Covered libertarian ID Lianet balbuena(s) D Medicaid [facility] [id number] Social History Type Description Quantity Date Captured Comments Alcohol Use Details Unknown Caffeine Use Details Unknown Tobacco Use Status Moderate cigarette smoker (10-19 cigs/day) Smoking Status Heavy tobacco smoker Smoking Tobacco Use Details Cigarette: Age Started: 39, Years Used 15 Cigarette: 0.5 Packs per day, Pack Year: 7.5 Sex Male Sexual Orientation Straight or heterosexual Gender Identity Male Vital Signs Date / Time: Height Weight [...]
--- OUTSIDE RECORDS SUMMARY | 2025-02-18 13:48 | XMS_ITS | Clinical Summary ---
Author Organization [facility] Address [address] [place] [address] Care Team Providers Care Medical Research Associate Name Role Phone Lorraine Orantes PATTERN GRADER CUTTER Unavailable Allergies No known active allergies Medications [...] Plan of Treatment Not on file Insurance [facility] Care Teams Medical Research Associate Relationship Specialty Start Date End Date Lorraine Orantes NP [address] [place] [address] Referring Physician Family Medicine 12/17/23
--- OUTSIDE RECORDS SUMMARY | 2025-02-18 13:48 | XMS_ITS | Patient Health Record ---
Author Organization [facility] [place] Address [address] [place] [address] Care Team Providers Care Drywaller Name Role Phone Tricia Gonzalez CNP Primary [...] ACCESS PPO PLUS LOCAL PLAN [address] [place] [address] [id number] Daniel Hudson Self - patient is the insured 8 Medical (General) History Medical History History ICD Code Migraines Surgical History Surgery Date(Month/Year) right hand fracture/pins & plate
--- OUTSIDE RECORDS SUMMARY | 2025-02-18 13:48 | XMS_ITS | Clinical Summary ---
Author Organization [facility] Address [address] [place] [address] Care Team Providers Care Material Expediter Name Role Phone Ricky Moulton MD Unavailable [phone] Jay Shen MD Unavailable [phone] Lorraine Orantes APRN.CARE TECHNICIAN Unavailable Wagner Hernandez MD Unavailable [phone] Allergies No known active allergies Medications [...] the past 6 months. 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 Airway Difficulty: Grade I - Upton Pacing Wires: No Surgeries: 05/10/2023: CABGx5 (BARNARD to LAD, MAULIK to PDA, rSVG to OM/D2 (sequenced), rSVG to D1 A/P of Major Active Problems: Transferred to [facility] 05/12 -CAD: s/p CABG x 5. [...] during hospital stay. F/u with PCP. Discharge: [place]. Will f/u CTS OPD (requested), f/u w/ PCP 1-2 weeks (Dr. Person) and Industrial Controller (Dr. Shen) in 1 month. Per CTS [...] the past 6 months. 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 Airway Difficulty: Grade I - Upton Pacing Wires: No Surgeries: 05/10/2023: CABGx5 (BARNARD to LAD, MAULIK to PDA, rSVG to OM/D2 (sequenced), rSVG to D1 A/P of Major Active Problems: Transferred to [facility] 05/12 -CAD: s/p CABG x 5. [...] w/ PCP 1-2 weeks (Dr. Person) and Industrial Controller (Dr. Shen) in 1 month. Per CTS [...] is lower risk 4 05/08/2023 Data from: https://www.neighborhoodatlas.medicine.[facility].edu/. Last address used for calculation [address] 05/08/2023 Sex and Gender Information Value Date [...] series) 2038 Medical Devices Implanted Type Area Senior Construction Manager Device Identifier Shelf Expiration Date Model / Serial / Lot [place] Thk1.65mm Ptfe 4x.5in Cardiovascular Sterile - [id number] Implanted:Qty: 1 on 05/10/2023 at [facility] Implant N/A: Heart BARD PERIPHERAL VASCULAR 02/02/2028 [id number] / / [id number] Stent X 2 Stent Artery - Coronary Procedures Procedure Name Priority Date/Time Associated Diagnosis Comments COMPREHENSIVE METABOLIC PANEL Routine 05/16/2023 7:20 AM EST from Last 3 Months or Most Recently Relevant to Health Maintenance Results * COMP METABOLIC PANEL (05/16/2023 7:20 AM EST) Protein, Total 7.1 6.3 - 8.0 g/dL 05/16/2023 10:38 AM EST [facility] Albumin 3.9 3.9 - 4.9 g/dL 05/16/2023 10:38 AM EST [facility] Calcium, Total 9.4 8.5 - 10.2 mg/dL 05/16/2023 10:38 AM EST [facility] Bilirubin, Total 0.7 0.2 - 1.3 mg/dL 05/16/2023 10:38 AM EST [facility] Alkaline Phosphatase 70 38 - 113 U/L 05/16/2023 10:38 AM EST [facility] AST 24 14 - 40 U/L 05/16/2023 10:38 AM EST [facility] ALT 19 10 - 54 U/L 05/16/2023 10:38 AM EST [facility] Glucose 97 74 - 99 mg/dL 05/16/2023 10:38 AM [facility] Comment: The [place] Diabetes Association (ADA) provides guidance for cutoff [...] Standards of Medical Care in Diabetes 2016, [place] Diabetes Association. Diabetes Care. 2016.39(Suppl 1). BUN 14 9 - 24 mg/dL 05/16/2023 10:38 AM EST [facility] Creatinine 1.08 0.73 - 1.22 mg/dL 05/16/2023 10:38 AM EST [facility] Sodium 136 136 - 144 mmol/L 05/16/2023 10:38 AM EST [facility] Potassium 3.8 3.7 - 5.1 mmol/L 05/16/2023 10:38 AM EST [facility] Chloride 99 97 - 105 mmol/L 05/16/2023 10:38 AM EST [facility] CO2 22 22 - 30 mmol/L 05/16/2023 10:38 AM EST [facility] Anion Gap 15 9 - 18 mmol/L 05/16/2023 10:38 AM EST [facility] Estimated Glomerular Filtration Rate 79 >=60 mL/min/1.7 3m 05/16/2023 10:38 AM EST [facility] Comment:Estimated Glomerular Filtration Rate (eGFR) is [...] EST Ricky Moulton MD LABORATORY Final Result [facility] [address] [address], from Last 3 Months or Most Recently Relevant to Health Maintenance Insurance [facility] MEDICAID MARKETPLACE EXCHANGE Care Teams Material Expediter Relationship Specialty Start Date End Date Ricky Moulton MD [address] [place] [address] Surgeon Cardiac Surg 03/20/23 Jya Shen MD [address] [place] [address] Industrial Controller Cardiology 03/20/23 Lorraine Orantes, MATERIALS ASSOCIATE.CARE TECHNICIAN [address] [place] [address] 05/08/23 Wagner Hrenandez MD [address] [place] [address] Primary Staff Physician Cardiology 05/09/23
--- OUTSIDE RECORDS SUMMARY | 2025-02-18 13:48 | XMS_ITS | Encounter Summary ---
Author Organization [facility] Address [address] [place] [address] Care Team Providers Care Bridge Teacher Name Role Phone Lorraine Oarntes FIRE ALARM REPAIRER Unavailable Encounter Details Date Type Department Care Team (Late st Contact Info) Description 04/16/2023 Abstract [facility] [address] [place] [address] Pilar Patrick NP Social History Tobacco Use [...] on filedocumented in this encounter Care Teams Bridge Teacher Relationship Specialty Start Date End Date Lorraine Orantes NP [address] [place] [address] Referring Physician Family Medicine 12/17/23 documented as of this encounter
--- NOTE | 2025-02-18 14:18 | PM.CN ---
Consult Note: HPI Data of Consult Patient: known to practice within the last 3 years Consult date: 01/22/25 Requesting Physician: Meron Acosta NP Primary Care Provider: Non-Staff Physician, MD Consult Narrative Reason for consult: low back pain Narrative: Daniel Hudson a pleasant 59 year old male presents for evaluation of low back pain. notes pain >5 years in neck and low back, was recently evaluated by GREGORIA Wright for low back pain who did not recommend surgical intervention, but to trial pain management. lumbar xray and MRI consistent with DDD and lumbar spondylosis, as well as mild listhesis. pain today 8/10 sharp aching increasing with twisting, pushing, pulling, standing, bending, stairs, activity. denies fall/injury. utilizing motrin, biofreeze, lexapro with minimal relief. stopped gabapentin as it was not effective per pt. since last visit has had worsening numbness, tingling, weakness to BLE. notes significant increase in pain with standing and walking, cannot sit still due to pain. cc:: CC: Meron Acosta NP Review of Systems ROS Musculoskeletal Reports: back pain PFSH PFSH Medical History (Updated 02/18/25 @ 14:20 by Meron Acosta NP) Arthritis ?M19.90 - Unspecified osteoarthritis, unspecified site (ICD-10) Anxiety ?F41.9 - Anxiety disorder, unspecified (ICD-10) Acid reflux ?K21.9 - Gastro-esophageal reflux disease without esophagitis (ICD-10) Loud snoring ?R06.83 - Snoring (ICD-10) Sleep apnea ?G47.30 - Sleep apnea, unspecified (ICD-10) High cholesterol ?E78.00 - Pure hypercholesterolemia, unspecified (ICD-10) History of angina ?Z86.79 - Personal history of other diseases of the circulatory system (ICD-10) Heart attack ?I21.9 - Acute myocardial infarction, unspecified (ICD-10) Surgical History (Updated 01/20/25 @ 10:35 by Kathleen Vargas) H/O heart artery stent ?Z95.5 - Presence of coronary angioplasty implant and graft (ICD-10) H/O hand surgery ?Z98.890 - Other specified postprocedural states (ICD-10) H/O heart bypass surgery ?Z95.1 - Presence of aortocoronary bypass graft (ICD-10) Meds Home Medications and Allergies Home Medications ?Medication ?Instructions ?Recorded ?Confirmed ?Type esomeprazole magnesium 40 mg 40 mg PO Q24H 01/04/23 02/16/25 History capsule,delayed release gabapentin 300 mg capsule 600 mg PO Q12H 01/04/23 02/16/25 History aspirin 81 mg tablet,delayed 81 mg PO DAILY 01/07/25 02/16/25 History release (Razia Low Dose Aspirin) escitalopram oxalate 20 mg tablet 20 mg PO DAILY 01/07/25 02/16/25 History ibuprofen 200 mg capsule 800 mg PO BID PRN pain 01/07/25 02/16/25 History metoprolol tartrate 25 mg tablet 25 mg PO BID 01/07/25 02/16/25 History rosuvastatin 20 mg tablet 20 mg PO DAILY 01/07/25 02/16/25 History meloxicam 7.5 mg tablet 7.5 mg PO BID PRN pain #60 tabs 01/22/25 02/16/25 Rx hydrocodone 5 mg-acetaminophen 325 1 tab PO BID PRN pain #14 tabs 02/04/25 02/16/25 Rx mg tablet Allergies Allergy/AdvReac Type Severity Reaction Status Date / Time No Known Drug Allergies Allergy Verified 02/16/25 12:39 Exam Constitutional Documenting provider has reviewed patient's vital signs: yes Common normals: no apparent distress, oriented x3, healthy appearing, alert and well nourished General appearance: cooperative HENRI Common normals: normocephalic, hearing grossly normal bilaterally and moist oral mucous membranes Head and scalp: normocephalic Eye Common normals: PERRL Pupil: PERRL Neck & C-Spine Common normals: full ROM General: normal visual inspection Cervical spine: pain with cervical ROM Chest Common normals: inspection of chest normal Respiratory Common normals: normal respiratory effort, no retractions and no use of accessory muscles Back & Pelvis Lumbar spine/lower back: ROM limited, pain with ROM, lumbar spinal tenderness, straight leg raise positive right and straight leg raise positive left Other: positive facet loading strength 5/5 in BLE radiculopathy to bilateral L5/S1 moderate to severe pain with standing and walking, improves with short periods of sitting and repositioning Neuro Common normals: oriented x3 Sensorium/orientation: alert Psych Common normals: mental status grossly normal, thought process normal, cooperative, affect normal, speech normal and activity/motor behavior normal Speech: normal speech Thought process: normal thought process Results Additional Findings Additional findings: If on a controlled substance or opioids, I have checked an [place]AR[place] report on this patient and there are no aberrancies noted in the prescribing history.??If on a controlled substance or opioid a drug screen was completed and reviewed within the last year, and if there has not been a drug screen completed we ordered one today to monitor higher risk, state monitored pain medication use. As part of providing excellent, safe, comprehensive care, the following was completed at our patient's visit: 1. A medication reconciliation and review to ensure accurate knowledge of current/active medications, including asking our patients to inform us about any byln-hem-ururmwu medications or herbal remedies/nutritional supplements/alternative remedies. 2. A review to specifically ensure our patients have had annual screening for screening for depression, screening for tobacco use, and screening for unhealthy alcohol use. For concerning screenings had a discussion with the patient, provided patient education, and recommended follow-up with primary care provider when appropriate. If patient noted with a risk of falling, they received education on strength, gait, and balance training to prevent future risk of falling. Portions of this note may have been carried over from the previous visit and updated as appropriate. Please note this office utilizes paper charting in addition to the electronic medical record. A list of current medications, vitals, and PMH is available there as the clinical staff outside of myself do not have access to OLSET charting during the clinic day operations. As part of providing quality comprehensive care the current medications, vitals, and PMH were reviewed in the paper chart. Assessment and Plan Assessment and Plan (1) Lumbar radiculopathy: (2) Lumbar spondylosis: Plan The patient has had over 3 months of moderate to severe low back pain with functional impairment and inadequate response to conservative care including NSAIDS (unless there are contraindication such as concurrent blood thinners), multiple oral or topical pain medications, and home exercise program/physical therapy.? Patient has completed >6 weeks of guided home exercise program and/or formal physical therapy program without relief of their symptoms.? The Oswestry Disability Index was completed, and the patient scored a 62%.? The patient noted the following:?? moderate to severe pain impacting ADLs, sitting, standing, sleeping, social life, travel update lumbar xray with flexion to assess stability start medrol dose pack for acute on chronic pain and lumbar radiculopathy stop meloxicam start flexeril 10mg hs prn pain/spasms bilateral L5-S1 TFESI under fluoroscopy for lumbar radiculopathy f/u 2 weeks after injection, refer back to NS if radicular pain persists and depending on lumbar xray results if listhesis has worsened
== END 2025-02-18 13:45 | disposition home or self-care (01) ==
LOC: PM 13:45
PROVIDERS: Visit Provider Nurse Practitioner
DX: M54.16 Radiculopathy, lumbar region (principal); M47.816 Spondylosis without myelopathy or radiculopathy, lumbar region
CPT/HCPCS: G0463

== ENCOUNTER 2025-02-18 14:25 | Outpatient (OUT) | payer BC, SELFPAY ==
--- NOTE | 2025-02-18 14:32 | XR_ITS ---
[facility] [place] [address] Patient Name: YOSELYN WHITNEY MRN: [id number] date: 1965 Sex: M Assigned Patient Location: [facility] Current Patient Location: Accession/Order Number: [id number] Exam Date: 02/18/2025 14:42 Report Date: 02/19/2025 00:22 At the request of: MARYAM ESPINO NP Procedure: XR lumbar spine 6V w bending XR lumbar spine 6V w bending 02/18/2025 2:53 PM SIGNS AND SYMPTOMS: ^Asses Stability and Listhesis ^Spondylosis without myelopathy PROTOCOLS: Frontal, lateral, and flexion-extension views of the lumbar spine COMPARISON: None FINDINGS: The alignment, development and bony structures are normal. There is no fracture or destructive lesion. No pathologic movement on flexion or extension. There is mild disc height loss at L5-S1. The sacrum and sacroiliac joints are normal. Atherosclerotic changes are noted in the abdominal aorta. XR/XR lumbar spine 6V w bending IMPRESSION: No fracture, subluxation, or pathologic movement. Mild degenerative changes are noted in the lumbar spine greatest at L5-S1. Impression dictated by: Meng Flynn M.D. 02/19/2025 12:22 AM Dictation [facility] Electronically authenticated by: [id number] Y Date: 02/19/2025 00:22
== END 2025-02-18 14:26 | disposition home or self-care (01) ==
LOC: RAD 14:26
PROVIDERS: PCP Nurse Practitioner; Visit Provider Nurse Practitioner
DX: M47.816 Spondylosis without myelopathy or radiculopathy, lumbar region (principal); M54.16 Radiculopathy, lumbar region; M51.369 Other intervertebral disc degeneration, lumbar region without mention of lumbar back pain or lower extremity pain
CPT/HCPCS: 72114; G0463

== ENCOUNTER 2025-03-02 11:46 | Day surgery (SDC) | payer BC, SELFPAY ==
--- OUTSIDE RECORDS SUMMARY | 2020-01-01 11:30 | XMS_ITS | Continuity of Care Document ---
Author Organization [facility] Address [address] [place] [address] Phone Care Team Providers Care Second Hand Name Role Phone Aracelirobyn SHERMANElsa Unavailable Unavailabl [...] Diagnoses Date Provider Providers Copied on Encounter [facility], [address] [place], [place], [id number], [place] tel:[phone] Dental [facility] DL (chief complaint) Encounter for screening for dental disorders Kerline ARAGONChiara Hunter. [address] [place] [address], [id number], [place]. tel:[phone] Family History Family Member Type Diagnosis Age At Onset Father Problem Heart Attack Payers Payer name Insurance type Covered republican ID Lianet balbuena(s) D Medicaid [facility] [id number] Social History Type Description Quantity Date Captured Comments Alcohol Use Details Unknown Caffeine Use Details Unknown Tobacco Use Status Moderate cigarette s moker (10-19 cigs/day) Smoking Status Heavy tobacco smoker Smoking Tobacco Use Details Cigarette: Age Started: 39, Years Used 15 Cigarette: 0.5 Packs per day, Pack Year: 7.5 [id number] SexMaleSexual OrientationStraight or heterosexualGender [id number] Vital Signs Date / Time: Height Weight [...]
--- OUTSIDE RECORDS SUMMARY | 2025-03-02 11:48 | XMS_ITS | Clinical Summary ---
Author Organization [facility] Address [address] [place] [address] Care Team Providers Care Irrigation Engineer Name Role Phone Ricky Moulton MD Unavailable [phone] Jay Shen MD Unavailable [phone] Lorraine Orantes APRN.OVER HAULER HELPER Unavailable Wagner Hernandez MD Unavailable [phone] Allergies No known active allergies Medications MedicationSigDispense QuantityRefillsLast FilledStart DateEnd DateStatus amLODIPine (NORVASC) 5 mg tablet Take 5 mg by mouth once daily.Active gabapentin (NEURONTIN) 300 mg capsule Take 300 mg by mouth three times a day.Active metoprolol tartrate, short acting, (LOPRESSOR) 25 mg tablet Take 25 mg by mouth two times a day.Active aspirin, enteric coated (ASPIRIN, ENTERIC COATED) 81 mg EC tablet Take 81 mg by mouth once daily.Active esomeprazole (NEXIUM) 40 mg capsule Take 40 mg by mouth daily at 6 am.Active acetaminophen (TYLENOL EXTRA STRENGTH) 500 mg tablet Take 1-2 tablets by mouth every 6 hours as needed for pain. Do not exceed 4000mg in 24 hours 30 tablet 05/16/2023ctive atorvastatin (LIPITOR) 20 mg tablet Take 1 tablet by mouth daily at bedtime. 30 tablet ctive lidocaine (SALONPAS) 4 % patch Apply 1 application as directed once daily. Apply 1 patch along side of sternal incision for 12 hours daily as needed for pain. Remove daily for 12 hours 05/16/2023ctive polyethylene glycol 3350 17 gram packet Take 1 Packet by mouth once daily. Dissolve dose in 4 - 8 ounces of liquid and take as directed. Toprevent constipation during post op recovery, then stop 7 Packet ctive senna-docusate (SENNA-S) 8.6-50 mg per tablet Take 1 tablet by mouth two times a day. To prevent constipation during post op recovery, then stop 28 tablet ctive Active Problems Patient Care Coordination No te Formatting of this note migh t be different from the original. Indication for Surgery: Complex Vessel Coronary Artery Disease Admit 05/10/23 Preop LVEF: 64% RVF: Normal EKG: SB 54 Cards: Shaniquacristi Mary Postop LVEF: Normal RVF: Normal PMH/PSH: CAD, NSTEMI s/p PCI PROMISE to OM (2.75 x 23 mm Liliana) in 2019, HTN, HLD, obesity, and smoking - just quit 05/06/2023 Preoperative Hospital Course: 57 yo male with CAD who presents for triple vessel coronary disease. Symptomaticwith progressive dyspnea and chest pain worsen especially over the past 6 months. 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 Airway Difficulty: Grade I - [place] Pacing Wires: No Surgeries: 05/10/2023: CABGx5 (BARNARD to LAD, MAULIK to PDA, rSVG to OM/D2 (sequenced), rSVG to D1 A/P of Major Active Problems: Transferred to [facility] 05/12 -CAD: s/p CABG x 5. [...] tube removal reported small right apical pneumothorax withan apical pleural separation of approximately 25 mm. [...] tingling. Has full ROM and strength. Biphasic DPand palpable PT. Mid ankle up with full sensation per patient. right SVG was harvested and coban was removed this morning. By next day, pt stated it was feeling better. -On nexium 40 mg at home. Increased routine postop PPI to 40 mg. Resume nexium on discharge -Stress hyperglycemia - No recent coverage, stopped SSI and accuchecks -Obesity - Body mass index is 32.28 kg/m??. Encourage and educate on lifestyle changes for Wt Loss during hospital stay. F/u with PCP. Discharge: [place], [place]. Will f/u CTS [facility] (requested), f/u w/ PCP 1-2 weeks (Dr. Person) and [employer] [facility] [address] (Dr. Shen) in [address] Vargas, ok for discharge today. Discharge Planning: Anticipated Discharge Date: 05/16 Barriers to Discharge: No Barriers to Discharge Care Management Discharge Needs: Needs Prior to Discharge: None ProblemNoted DateDiagnosed DateEncounter for support and coordination of transition of care05/14/2023 Overview (05/16/2023): Indication for Surgery: Complex Vessel [...] over the past 6 months. 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 Airway Difficulty: Grade I - [place] Pacing Wires: No Surgeries: 05/10/2023: CABGx5 (BARNARD to LAD, MAULIK to PDA, rSVG to OM/D2 (sequenced), rSVG to D1 A/P of Major Active Problems: Transferred to [facility] 05/12 -CAD: s/p CABG x 5. [...] tube removal reported small right apical pneumothorax withan apical pleural separation of approximately 25 mm. [...] tingling. Has full ROM and strength. Biphasic DPand palpable PT. Mid ankle up with full sensation per patient. right SVG was harvested and coban was removed this morning. By next day, pt stated it was feeling better. -On nexium 40 mg at home. Increased routine postop PPI to 40 mg. Resume nexium on discharge -Stress hyperglycemia - No recent coverage, stopped SSI and accuchecks -Obesity - Body mass index is 32.28 kg/m??. Encourage and educate on lifestyle changes for Wt Loss during hospital stay. F/u with PCP. Discharge: [place]. Will f/u CTS [facility] (requested), f/u w/ PCP 1-2 weeks (Dr. Person) and [employer] [address] (Dr. Shen) in [address] Vargas, ok for discharge today. Discharge Planning: Anticipated Discharge Date: 05/16 Barriers to Discharge: No Barriers to Discharge Care Management Discharge Needs: Needs Prior to Discharge: None Obesity, Class I, BMI 30-34.9005/13/2023 Overview (05/14/2023): Body mass index is 33.15 kg/m??. Ukzwodhzxtr77/05/2024 Overview (05/14/2023): CAD (coronary artery disease)05/10/2023 Overview (05/10/2023): Hx of NSTEMI s/p PCI in 2019 Per OSH coronary angio: LAD 80-90% stenosis, LCx 50% proximal and 78% distal stenosis, RCA 80-90% proximal stenosis. HTN (hypertension)05/10/2023 Overview (05/14/2023): Home meds amlodipine and metoprolol HLD (hyperlipidemia)05/10/2023 Overview (05/14/2023): See coord note. Admrquw1905/10/20230382Zbrpwo63/04/2024 Overview (05/14/2023): Quit 05/06/2023 On mechanically assisted kglvoiznvqr82/04/2024ostoperative pain05/10/2023 Overview (05/14/2023): Stress ufrfzxnkxrgrf72/04/4073Chgxltfbwyi41/04/2024Sinus nrgwvucomet87/04/2024 Discharge planning xgycmp6505/09/2023 Overview (05/14/2023): Patient is here for cardiac surgery . Pre-op degvnmk9105/09/2023 Overview (05/09/2023): [facility] [...] AM CHECKED BY: AVI Social History Tobacco UseTypesPacks/DayYears UsedDateSmoking Tobacco: FormerCigarettesQuit: 05/06/2023Smokeless Tobacco: Never Tobacco Cessation:Counseling Given: Not Answered Alcohol UseStandard Drinks/WeekCommentsNever0 (1 standard drink = 0.6 oz pure alcohol)Area Deprivation IndexAnswerDate RecordedNational Score (1-100), lower number is lower otys098805/08/2023State Score (1-10), lower number is lower risk4 05/08/2023ata from: https://www.neighborhoodatlas.medicine.[facility].edu/. Last address used for [address]/08/2023Sex and Gender InformationValueDate RecordedSex Assigned at BirthNot on fileLegal SexMale 03/20/2023 9:33 AM ESTGender IdentityNot on fileSexual OrientationNot on file Last Filed Vital Signs Vital SignReadingTime TakenCommentsBlood Urknmebr820/75005/22/2023 11:32 AM EST Xtetd729405/22/2023 11:32 AM OZBZttolwodubz06.4 ??C (97.6 ??F)05/22/2023 11:32 AM ESTRespiratory Ceuj748005/22/2023 11:32 AM ESTOxygen Ktuflkvnzj43%05/22/2023 11:32 AM ESTInhaled Oxygen Concentration--Vjtltr79.4 kg (206 lb)05/22/2023 11:32 AM ZLCPihdqy840.2 cm (5' 7 )05/22/2023 11:32 AM ESTBody Mass Index32.26005/22/2023 11:32 AM EST Plan of Treatment Health MaintenanceDue DateLast DoneCommentsAnnual PCP Team Chronic Disease Visit 1981Anxiety Wxihbdyix59/02/1982Depression Rmfagqzqq15/02/1982HIV Screening 1981Hepatitis C Pswjqbnmj62/02/1982LDL Fgfkvheksyf03/02/1982DTaP,Tdap,Td Vaccine (1 - Tdap)1982Lipid Qtcfgsoxt44/02/1999CT Hxsnotevwald33/02/2009 Cologuard (FIT-DNA)06/08/20087308Zcfqqgvirrr32/02/2009Colorectal Cancer Screening 2008Fecal Occult Blood2008Prostate Cancer Screening Discussion 06/08/20087049Czdjeehjdqhtk11/02/2009Pneumococcal Vaccine: 50+ (1 of 1 - PCV) 2013Shingrix Vaccine (1 of 2)2013Covid-19 Vaccine (3 season)5106/19/2020, 10/03/2020Influenza Vaccine (#1)2025 02/24/2022, 02/11/2020, 03/24/2019, Additional history existsDiabetes Screening 7005/16/2023, 05/15/2023, 05/14/2023, Additional history existsRSV Vaccine (1 - 1-dose 75+ series)2038 Medical Devices ImplantedTypeAreaManufacturerDevice IdentifierShelf Expiration DateModel / Serial / LotFelt Thk1.65mm Ptfe 4x.5in Cardiovascular Sterile - [id number] Implanted:Qty: 1 on [facility] MAINImplantN/A: HeartBARD PERIPHERAL [id number] / / [id number] X 2StentArtery - Coronary Procedures Procedure NamePriorityDate/TimeAssociated DiagnosisCommentsCOMPREHENSIVE METABOLIC EOIZAFgldmqc83/10/2024 7:20 AM EST from Last 3 Months or Most Recently Relevant to Health Maintenance Results * COMP METABOLIC PANEL (05/16/2023 7:20 AM EST)ComponentValueRef RangeTest MethodAnalysis TimePerformed AtPathologist SignatureProtein, Total7.16.3 - 8.0 g/dL05/16/2023 10:38 AM [facility] LABAlbumin3.93.9 - 4.9 g/dL05/16/2023 10:38 AM [facility] LABCalcium, Total9.4 8.5 - 10.2 mg/dL05/16/2023 10:38 AM [facility] Bilirubin, Total0.70.2 - 1.3 mg/dL05/16/2023 10:38 AM [facility] LABAlkaline Tkukcozfrco3003 - 113 U/L05/16/2023 10:38 AM [facility] RTDAZJ1574 - 40 U/L05/16/2023 10:38 AM [facility] HREAAO2575 - 54 U/L05/16/2023 10:38 AM [facility] DRSKabruuf8976 - 99 mg/dL05/16/2023 10:38 AM [facility] LABComment: The [place] Diabetes Association (ADA) provides guidance for cutoff values for fasting glucose andrandom glucose. The ADA defines fasting as no [...] Standards of Medical Care in Diabetes 2016, [place] Diabetes Association. Diabetes Care. 2016.39(Suppl 1). STX386 - 24 mg/dL05/16/2023 10:38 AM [facility] Creatinine1.080.73 - 1.22 mg/dL05/16/2023 10:38 AM [facility] JWEAnbpxd324294 - 144 mmol/L05/16/2023 10:38 AM [facility] LABPotassium3.83.7 - 5.1 mmol/L05/16/2023 10:38 AM [facility] AXLRuzzkpwk3398 - 105 mmol/L05/16/2023 10:38 AM [facility] AKKUH55177 - 30 mmol/L05/16/2023 10:38 AM [facility] LABAnion [address]462 - 18 mmol/L05/16/2023 10:38 AM [facility] LABEstimated Glomerular Filtration Rate79>=60 mL/min/1.73m 05/16/2023 10:38 AM [facility] LABComment:Estimated Glomerular Filtration Rate (eGFR) is calculated using the 2020 CKD-EPI creatinine equation. This equation utilizes serum creatinine, sex, and age as parameters. The creatinine assay has traceable calibration to isotope dilution- mass spectrometry. Refer to KDIGO guidelines for clinical interpretation. In patients with unstable renal function, e.g. those with acute kidney injury, the eGFRmay not accurately reflect actual GFR.Specimen (Source)Anatomical Location / LateralityCollection Method / VolumeCollection TimeReceived TimeBloodBLOOD SPECIMEN / UnknownVenipuncture / Lmjyvbe8405/16/2023 7:20 AM EST05/16/2023 7:56 AM EST Narrative Authorizing ProviderResult TypeResult StatusEdmary Moulton MDLABORATORYFinal ResultPerforming OrganizationAddressCity/State/ZIP CodePhone Number [facility] [address] [place] [address], [place] from Last 3 Months or Most Recently Relevant to Health Maintenance Insurance Care Teams Team MemberRelationshipSpecialtyStart DateEnd Ricky Moulton MD [address] [place] [address] SurgeonCardiac Surg03/20/23 Jay Shen MD [address] [place] [address] MhxmbkmbpygrBqjjwspryd67/14/23 Lorraine Orantes APRN.OVER HAULER HELPER [address] [place] [address] 05/08/23 Wagner Hernandez MD [address] [place] [address] Primary Staff PhysicianCardiology05/09/23
--- OUTSIDE RECORDS SUMMARY | 2025-03-02 11:48 | XMS_ITS | Clinical Summary ---
Author Organization [facility] Address [address] [place] [address] Care Team Providers Care Engraving Patternmaker Name Role Phone Lorraine Orantes HEALTH NURSE Unavailable Allergies No known active allergies Medications MedicationSigDispense QuantityRefillsLast FilledStart DateEnd DateStatus Aspirin Low Dose 81 MG EC tablet Take 81 mg by mouth in the morning.Active esomeprazole (NexIUM) [address] capsule Take 40 mg by mouth in the morning.Active tiZANidine (Zanaflex) 4 MG tablet TAKE 1- TWO TABLETS BY MOUTH DAILY AT LNEUBIL6612/14/2023ctive gabapentin (Neurontin) 300 MG capsule Take 300 mg by mouth in the morning and 300 mg in the evening and 300 mg before bedtime.10/10/2023ctive atorvastatin (Lipitor) 20 MG tablet Take 20 mg by mouth05/16/2023ctive metoprolol tartrate (Lopressor) 25 MG tablet Take 25 mg by mouth09/14/2023ctive methylPREDNISolone (Medrol Dospak) 4 MG tablets Indications:Lateral epicondylitis of left elbowFollow schedule on package instructions 21 tablet 12/24/2023ctive Family History RelationNameStatusCommentsFatherDeceasedMotherDeceased Social History Tobacco UseTypesPacks/DayYears UsedDateSmoking Tobacco: Every DayCigarettes Tobacco Cessation:Ready to Q uit: Not Asked; Counseling Given: Not Answered Comments:6-10 cigarettes Alcohol UseStandard Drinks/WeekCommentsNot Currently0 (1 standard drink = 0.6 oz pure alcohol)Sex and Gender InformationValueDate RecordedSex Assigned at Not on fileLegal VpxQpcx3807/19/2022 8:24 PM EDTGender IdentityNot on fileSexual OrientationNot on file Last Filed Vital Signs Vital SignReadingTime TakenCommentsBlood Pressure--Pulse--Temperature-- Respiratory Rate--Oxygen Saturation--Inhaled Oxygen Concentration--Oqzaht20.2 kg (209 lb 12.8 oz)05/19/2021 12:00 PM YNQNwhjsf406.2 cm (5' 7 )05/19/2021 12:00 PM ESTBody Mass Index32.8605/19/2021 12:00 PM EST Plan of Treatment Not [place] [id number] Care Teams Team MemberRelationshipSpecialtyStart DateEnd Date Lorraine Orantes NP [address] [place] [address] Referring PhysicianFamily [facility]12/17/23
[2025-03-02 12:03] VITALS: BP 146/83; PULSE 69; TEMP 36.3; O2SAT 97
[2025-03-02 12:44] VITALS: BP 157/82; PULSE 65; O2SAT 97
[2025-03-02 12:45] VITALS: BP 161/87; PULSE 75; O2SAT 96
[2025-03-02] MEDS: 0.9 % SODIUM CHLORIDE 10 ML SYRINGE - SALINE FLUSH INJ (12:47)
[2025-03-02] MEDS: BUPIVACAINE HCL 0.25% PF 25 MG/10 ML VIAL INJ (12:48)
[2025-03-02] MEDS: IOHEXOL 240 MG/ML - 10 ML VIAL 24 MG INJ (12:48)
[2025-03-02] MEDS: LIDOCAINE HCL 2% 400 MG/20 ML MDV INJ (12:48)
[2025-03-02] MEDS: METHYLPREDNISOLONE ACETATE 80 MG/ML VIAL INJ (12:48)
--- NOTE | 2025-03-02 12:53 | W.PM.PROCNOT ---
Date of procedure: 03/02/25 Pre-op diagnosis: Pain due to lumbar stenosis with neurogenic claudication Post-op diagnosis: same as pre-op Procedure: Procedure: Bilateral L5-S1 transforaminal epidural steroid injection Medications: Bupivacaine 0.25% 2cc, lidocaine 2% 1cc, depomedrol 80mg The patient was seen and examined in the preoperative holding area.? Informed consent was obtained and placed on the chart.? Patient was brought to the medical procedure unit and placed in the prone position where a timeout was completed verifying the correct patient, procedure site, position, and planned special equipment using sterile aseptic technique.? Under direct fluoroscopic visualization a 25-gauge Quincke tipped spinal needle was advanced at level left L5-S1 to the designated neural foramen where contrast dye was injected to show adequate spread.? There was no evidence of vascular or adverse uptake.? Epidural spread was appreciated.? The above-mentioned injectate was then placed in a 1.5 mL aliquot preceded by negative aspiration.? The needle was removed. The same procedure, at the same level, was completed on the opposite side. ? Patient was taken to the postprocedural recovery area and monitored for an appropriate length of time before found suitable for discharge in the accompaniment of a responsible adult. Anesthesia: Local Surgeon: Yumiko Cazares Pathology: none sent Condition: stable Disposition: no change
== END 2025-03-02 12:52 | disposition home or self-care (01) ==
PROVIDERS: PCP Nurse Practitioner; Visit Provider Anesthesiology
DX: M48.062 Spinal stenosis, lumbar region with neurogenic claudication (principal); M54.50 Low back pain, unspecified
CPT/HCPCS: 64483; J0665; J1010; Q9966

== ENCOUNTER 2025-03-12 09:56 | Outpatient (OUT) | payer BC, SELFPAY ==
--- OUTSIDE RECORDS SUMMARY | 2020-01-01 10:30 | XMS_ITS | Continuity of Care Document ---
Author Organization [facility] Address [address] [place] [address] Phone Care Team Providers Care Lifter Driver Name Role Phone Aracelirobyn SHERMANElsa Unavailable Unavailabl e Allergies, Adverse Reactions, Alerts Substance Reaction Status Criticality No Known Allergies Active No Inform ation Medications Medication Instructions Dosage Effective Dates (start - stop) Status Comments Aspirin Low Dose 81 mg tablet,delayed release take 1 tablet by oral route every day 81 MG - Active Nexium 40 mg capsule,delayed release take 1 capsule by oral route every day 40 MG - Active Procedures Procedure Date Panoramic Film PPE Limited Oral Eval Extract; Erupted Th/exposted Rt [address] Advance Directives Directive Yes / No Effective Date File Name No Information Encounters Encounter Description Practice Location Reason(s) For Visit Diagnoses Date Provider Providers Copied on Encounter [facility], [address] [place], [place], [id number], [place] tel:[phone] Dental Clinic DL (chief complaint) Encounter for screening for dental disorders Kerline ARAGONChiara Mariano. [address] [place] [address], [id number], [place]. tel:[phone] Family History Family Member Type Diagnosis Age At Onset Father Problem Heart Attack Payers Payer name Insurance type Covered democrat ID Lianet balbuena(s) D Medicaid [facility] [id number] Social History Type Description Quantity Date Captured Comments Alcohol Use Details Unknown Caffeine Use Details Unknown Tobacco Use Status Moderate cigarette s moker (10-19 cigs/day) Smoking Status Heavy tobacco smoker Smoking Tobacco Use Details Cigarette: Age Started: 39, Years Used 15 Cigarette: 0.5 Packs per day, Pack Year: 7.5 [id number] SexMaleSexual OrientationStraight or heterosexualGender [id number] Vital Signs Date / Time: Height Weight BMI Pulse Rate Blood Pressure Temperature Respiratory Rate Body Surface Area Head Circumference Head Circ. Percentile Wt./Jhonny. Percentile BMI percentile Pulse Ox Inhaled Ox 3:21 PM 76 /min 148/94 mm[Hg] 98.40 F Chief Complaint And Reason For Visit From encounter dated '01/01/2020 15:30'. DL (chief complaint) Reason For Referral Reason For Referral No Information History Of Present Illness Encounter Date Complaint History Of Prese nt Illness DL Functional Status Date Functional Assessmen t No Information Instructions Date Instruction Additional Infor mation No Information Assessments Type Assessment Date assessment Encounter for screening for dent al disorders Patient Care Teams Name Effective Dates (start - stop) Status Members No Information
--- OUTSIDE RECORDS SUMMARY | 2025-03-12 10:02 | XMS_ITS | Clinical Summary ---
Author Organization [facility] Healthcare Address [address] [place] [address] Care Team Providers Care Dispensing And Measuring Optician Name Role Phone Lorraine Orantes TRAPPER ANIMAL Unavailable Allergies No known active allergies Medications MedicationSigDispense QuantityRefillsLast FilledStart DateEnd DateStatus Aspirin Low Dose 81 MG EC tablet Take 81 mg by mouth in the morning.Active esomeprazole (NexIUM) [address] capsule Take 40 mg by mouth in the morning.Active tiZANidine (Zanaflex) 4 MG tablet TAKE 1- TWO TABLETS BY MOUTH DAILY AT LKZTDPP6912/14/2023ctive gabapentin (Neurontin) 300 MG capsule Take 300 [...] InformationValueDate RecordedSex Assigned at Not on fileLegal CqlQhim2207/19/2022 8:24 PM EDTGender IdentityNot on fileSexual OrientationNot on file Last Filed Vital Signs Vital SignReadingTime TakenCommentsBlood Pressure--Pulse--Temperature-- Respiratory Rate--Oxygen Saturation--Inhaled Oxygen Concentration--Pmkkah59.2 kg (209 lb 12.8 oz)05/19/2021 12:00 PM YZUEjlafv718.2 cm (5' 7 )05/19/2021 12:00 PM ESTBody Mass Index32.8605/19/2021 12:00 PM EST Plan of Treatment [place] [address] Care Teams Team MemberRelationshipSpecialtyStart DateEnd Date Lorraine Orantes NP [address] [place] [address] Referring PhysicianFamily [facility]12[facility]17[facility]
--- OUTSIDE RECORDS SUMMARY | 2025-03-12 10:02 | XMS_ITS | Patient Health Record ---
Author Organization [facility] in [place] Address [address] [place] [address] Care Team Providers Care Bottle Packer Name Role Phone Tricia Gonzalez CNP Primary Care Provider Unavail able Reason For Referral No Information Medications Medication SIG (Take, Route, Frequency, Duration) Notes Start Date End Date Status oxyCODONE-Acetaminophen 5-325 MG 1 tablet as nee ded Orally every 6 hrs ActivetraMADol HCl 50 MG1 tablet as needed Orally every 6 hrsActive Social History Tobacco Use: Social History Observation Description Date Details (start date - stop date) Current Smoker NA - NA Tobacco Use/Smoking Question Answer Notes Patient is a current smoker How often do you smoke cigarettes?every dayHow many cigarettes a day do you smoke?11-20 Plan Of Treatment Pending Test Test Name Order Date MRI Cervical Spine w/o contrast * 2017 Insurance Providers Payer Name Payer Address Payer Phone Subscriber Number Group Number Insured Name Patient Relationship to Insured Coverage Start Date Coverage End Date [employer] PPO PLUS LOCAL PLAN [address] [place] [phone] [id number] Daniel Hudson Self - patient is the insured 8 Medical (General) History Medical History History ICD Code Migraines Surgical History Surgery Date(Month/Year) right hand fracture/pins & plate
--- NOTE | 2025-03-12 10:28 | PM.CN ---
Consult Note: HPI Data of Consult Patient: known to practice within the last 3 years Consult date: 03/12/25 Requesting Physician: Meron Acosta NP Primary Care Provider: NADINE QUESADA Consult Narrative Reason for consult: low back pain Narrative: Daniel Hudson a pleasant 59 year old male presents for evaluation of low back pain. notes pain >5 years in neck and low back, was recently evaluated by GREGORIA Wright for low back pain who did not recommend surgical intervention, but to trial pain management. lumbar xray and MRI consistent with DDD and lumbar spondylosis, as well as mild listhesis. pain today 10/10 sharp increasing with twisting, pushing, pulling, standing, bending, stairs, activity. denies fall/injury. on 02-28-25 he underwent bilateral L5-S1 TFESI with 75% improvement in his pain and functional ability for 2 days, no ongoing relief. patient is frustrated as nothing is working cc:: CC: Meron Acosta NP Review of Systems ROS Musculoskeletal Reports: back pain and extremity pain PFSH PFSH Medical History (Updated 02/18/25 @ 14:20 by Meron Acosta NP) Arthritis ?M19.90 - Unspecified osteoarthritis, unspecified site (ICD-10) Anxiety ?F41.9 - Anxiety disorder, unspecified (ICD-10) Acid reflux ?K21.9 - Gastro-esophageal reflux disease without esophagitis (ICD-10) Loud snoring ?R06.83 - Snoring (ICD-10) Sleep apnea ?G47.30 - Sleep apnea, unspecified (ICD-10) High cholesterol ?E78.00 - Pure hypercholesterolemia, unspecified (ICD-10) History of angina ?Z86.79 - Personal history of other diseases of the circulatory system (ICD-10) Heart attack ?I21.9 - Acute myocardial infarction, unspecified (ICD-10) Surgical History (Updated 01/20/25 @ 10:35 by Kathleen Vargas RN) H/O heart artery stent ?Z95.5 - Presence of coronary angioplasty implant and graft (ICD-10) H/O hand surgery ?Z98.890 - Other specified postprocedural states (ICD-10) H/O heart bypass surgery ?Z95.1 - Presence of aortocoronary bypass graft (ICD-10) Meds Home Medications and Allergies Home Medications ?Medication ?Instructions ?Recorded ?Confirmed ?Type esomeprazole magnesium 40 mg 40 mg PO Q24H 01/04/23 03/02/25 History capsule,delayed release aspirin 81 mg tablet,delayed 81 mg PO DAILY 01/07/25 03/02/25 History release (Razia Low Dose Aspirin) ibuprofen 200 mg capsule 800 mg PO BID PRN pain 01/07/25 03/02/25 History cyclobenzaprine 10 mg tablet 10 mg PO HS PRN muscle spasm #30 02/18/25 03/02/25 Rx tabs Allergies Allergy/AdvReac Type Severity Reaction Status Date / Time No Known Drug Allergies Allergy Verified 03/02/25 12:00 Exam Narrative Exam Narrative: patient refused physical exam, left before an exam could be completed Constitutional General appearance: anxious Neuro Gait (neuro): antalgic Assessment and Plan Assessment and Plan (1) Lumbar radiculopathy: (2) Lumbar spondylosis: Plan 59 year old male with chronic low back pain and worsening BLE pain. Since last visit he underwent a bilateral L5-S1 TFESI with 75% improvement in pain and functional ability for 2 days. pt noting no improvement ongoing. Patient agitated due to severe unmanaged pain. Patient expressing significant upset that we wont prescribe him medications to manage his pain, despite him previously failing gabapentin, tizanidine, baclofen, flexeril, robaxin, motrin, tylenol, lexapro, meloxicam, and medrol dose pack. Patient declining examination today, states that he is done with us and we do not care about his pain or his quality of life. patient requesting his records be sent back to his PCP. he is declining further treatment with our office and self dismissing. i attempted to explain our approach and workup for chronic pain but with his agitation and mindset he is not open to conversation. patient states he has to have surgery to fix this and thats all he wants, he is refusing a NS consultation from our office and refusing to return to Dr Wright i recommend the patient consider a scs trial with next pain management program or NS
== END 2025-03-12 09:57 | disposition home or self-care (01) ==
LOC: PM 09:59
PROVIDERS: PCP Nurse Practitioner; Visit Provider Nurse Practitioner
DX: M54.16 Radiculopathy, lumbar region (principal); M47.816 Spondylosis without myelopathy or radiculopathy, lumbar region
CPT/HCPCS: G0463